=== PATIENT | male | born 1955 | race Caucasian/White ===

== ENCOUNTER 2016-10-07 04:28 | Emergency (ER) | payer MEDICAID ==
[2016-09-25 21:58] VITALS: BMI 23.7
[~2016-10-07 04:28] MED LIST: ASPIRIN EC81 MG PO; HEP C MEDICATION; NITROSTAT0.4 MG SL; NORCO 10/325 TA1 TA1 PO; PERCOCET 5-3251 TAB PO; PLAVIX75 MG PO; PRAVACHOL10 MG
== END 2016-10-07 05:28 | disposition home or self-care (01) ==
LOC: D.ER 04:28
DX: R10.9 Unspecified abdominal pain (principal); R11.10 Vomiting, unspecified; R19.7 Diarrhea, unspecified; F17.200 Nicotine dependence, unspecified, uncomplicated

== ENCOUNTER 2016-10-11 08:56 | Emergency (ER) | payer MEDICAID ==
[2016-09-25 21:58] VITALS: BMI 23.7
[2016-10-11 09:23] LABS: BASOPHILS 0.2 % (0.0-2.0); EOSINOPHILS 0.6 % (0-7); HEMATOCRIT 45.6 % (42.0-54.0); HEMOGLOBIN 15.1 g/dL (13.5-17.5); IMMATURE GRANULOCYTES 0.2 % (0-5); LYMPHOCYTES 23.2 % (15-50); MCH 32.7 pg (26.0-34.0); MCHC 33.1 g/dL (31.0-37.0); MCV 98.7 fL (80.0-100.0); MONOCYTES 5.5 % (2-11); NEUTROPHILS 70.3 % (40-80); RBC 4.62 10x6/uL (4.20-6.10); RDW 13.2 % (11.5-14.5); WBC 10.3 10x3/uL (4.8-10.8)
[2016-10-11 09:29] LABS: PLATELET COUNT 237 10x3/uL (130-400)
[2016-10-11 09:31] LABS: INR 0.99 (0.85-1.17); PROTIME 12.9 SECONDS (11.6-15.0)
[2016-10-11 09:36] LABS: ALBUMIN 3.9 g/dL (3.4-5.0); ALKALINE PHOSPHATASE 62 U/L (46-116); ALT (SGPT) 17 U/L (10-68); BILIRUBIN - TOTAL 0.28 mg/dL (0.2-1.3); CALC OSMOLALITY 282 mosm/kg (275-300); CALCIUM 9.4 mg/dL (8.5-10.1); CARBON DIOXIDE 23.4 mmol/L (21.0-32.0); CHLORIDE - SERUM 106 mmol/L (98-107); POTASSIUM - SERUM 4.1 mmol/L (3.5-5.1); PROTEIN - SERUM 7.4 g/dL (6.4-8.2); SODIUM 141 mmol/L (136-145); UREA NITROGEN 11 mg/dL (7-18); eGFR NON AFRICAN AMERICAN 81 mL/min (90-120)
[2016-10-11 09:41] LABS: GLUCOSE 148 mg/dL (74-106)
[2016-10-11 09:45] LABS: AMYLASE - SERUM 60 U/L (25-115); CREATINE KINASE 100 UL (21-232); LIPASE 124 U/L (73-393); PRO BNP 157 pg/mL (0-125); TROPONIN-I < 0.017 ng/mL (0.000-0.060)
== END 2016-10-11 10:16 | disposition home or self-care (01) ==
LOC: D.ER 08:56
PROVIDERS: Family Medicine
DX: K52.9 Noninfective gastroenteritis and colitis, unspecified (principal); I45.10 Unspecified right bundle-branch block; I44.60 Unspecified fascicular block

== ENCOUNTER 2016-10-13 23:16 | Emergency (ER) | payer MEDICAID ==
[2016-09-25 21:58] VITALS: BMI 23.7
== END 2016-10-14 00:21 | disposition home or self-care (01) ==
LOC: D.ER 23:16
DX: S46.912A Strain of unspecified muscle, fascia and tendon at shoulder and upper arm level, left arm, initial encounter (principal); X50.0XXA Overexertion from strenuous movement or load, initial encounter; X50.9XXA Other and unspecified overexertion or strenuous movements or postures, initial encounter; Y93.89 Activity, other specified; Y92.017 Garden or yard in single-family (private) house as the place of occurrence of the external cause; Y99.8 Other external cause status; B19.20 Unspecified viral hepatitis C without hepatic coma

== ENCOUNTER 2017-02-21 11:09 | Emergency (ER) | payer MEDICAID ==
[2016-09-25 21:58] VITALS: BMI 23.7
== END 2017-02-21 12:29 | disposition left against medical advice (07) ==
LOC: D.ER 11:09
DX: M54.2 Cervicalgia (principal)

== ENCOUNTER 2017-02-22 08:44 | Emergency (ER) | payer MEDICAID ==
[2016-09-25 21:58] VITALS: BMI 23.7
== END 2017-02-22 09:57 | disposition left against medical advice (07) ==
LOC: D.ER 08:44
DX: R07.9 Chest pain, unspecified (principal); I45.10 Unspecified right bundle-branch block

== ENCOUNTER 2017-02-24 15:55 | Emergency (ER) | payer MEDICAID ==
[2016-09-25 21:58] VITALS: BMI 23.7
[2017-02-24 18:50] LABS: BASOPHILS 0.8 % (0-2); EOSINOPHILS 2.5 % (0-7); HEMATOCRIT 45.8 % (42.0-54.0); HEMOGLOBIN 15.2 g/dL (13.5-17.5); IMMATURE GRANULOCYTES 0.1 % (0-5); LYMPHOCYTES 36.6 % (15-50); MCH 32.3 pg (26.0-34.0); MCHC 33.2 g/dL (31.0-37.0); MCV 97.4 fL (80.0-100.0); MEAN PLATELET VOLUME 10.8 fL (7.4-10.4); PLATELET COUNT 202 10x3/uL (130-400); RDW 13.3 % (11.5-14.5); WBC 9.1 10x3/uL (4.8-10.8)
[2017-02-24 19:10] LABS: ALBUMIN 3.8 g/dL (3.4-5.0); ALKALINE PHOSPHATASE 65 U/L (46-116); ALT (SGPT) 19 U/L (10-68); BILIRUBIN - TOTAL 0.24 mg/dL (0.2-1.3); CALC OSMOLALITY 279 mosm/kg (275-300); CALCIUM 9.2 mg/dL (8.5-10.1); CARBON DIOXIDE 24.6 mmol/L (21.0-32.0); CHLORIDE - SERUM 105 mmol/L (98-107); GLUCOSE 101 mg/dL (74-106); LIPASE 164 U/L (73-393); POTASSIUM - SERUM 4.3 mmol/L (3.5-5.1); PROTEIN - SERUM 7.1 g/dL (6.4-8.2); SODIUM 141 mmol/L (136-145); UREA NITROGEN 11 mg/dL (7-18); eGFR NON AFRICAN AMERICAN 81 mL/min (90-120)
== END 2017-02-24 22:50 | disposition home or self-care (01) ==
LOC: D.ER 15:55
PROVIDERS: Physician Assistant
DX: Z03.89 Encounter for observation for other suspected diseases and conditions ruled out (principal); F17.200 Nicotine dependence, unspecified, uncomplicated

== ENCOUNTER → 2017-04-16 13:54 | Outpatient (CLI) | payer MEDICAID ==
[2016-09-25 21:58] VITALS: BMI 23.7
== END | disposition home or self-care (01) ==
LOC: D.LAB 13:54
DX: Z01.812 Encounter for preprocedural laboratory examination (principal); I10 Essential (primary) hypertension; T14.8 Other injury of unspecified body region

== ENCOUNTER → 2017-04-30 07:19 | Outpatient (CLI) | payer MEDICAID ==
[2016-09-25 21:58] VITALS: BMI 23.7
[2017-04-30 07:52] LABS: HEMATOCRIT 43.4 % (42.0-54.0); HEMOGLOBIN 14.8 g/dL (13.5-17.5); WBC 9.7 10x3/uL (4.8-10.8)
[2017-04-30 08:08] LABS: CREATININE - SERUM 0.8 mg/dL (0.6-1.3); POTASSIUM - SERUM 4.4 mmol/L (3.5-5.1)
[2017-04-30 08:09] LABS: INR 0.92 (0.85-1.17); PROTIME 12.2 SECONDS (11.6-15.0)
== END ==
LOC: D.LAB 04-29 09:00
PROVIDERS: Specialist
DX: Z01.812 Encounter for preprocedural laboratory examination (principal); I10 Essential (primary) hypertension; T14.8 Other injury of unspecified body region

== ENCOUNTER → 2017-05-05 10:13 | Outpatient (CLI) | payer MEDICAID ==
[2016-09-25 21:58] VITALS: BMI 23.7
[2017-05-05 16:18] LABS: APPEARANCE CLEAR (CLEAR); BILIRUBIN NEGATIVE (NEGATIVE); COLOR DK YELLOW (YELLOW); GLUCOSE NEGATIVE (NEGATIVE); KETONE NEGATIVE (NEGATIVE); LEUKOCYTE ESTERASE NEGATIVE (NEGATIVE); NITRITE NEGATIVE (NEGATIVE); PROTEIN NEGATIVE (NEGATIVE); UROBILINOGEN NORMAL (NORMAL)
[2017-05-05 16:20] LABS: MUCUS <1+ /lpf (NONE SEEN)
[2017-05-05 16:22] LABS: WHITE CELLS - URINE OCC /hpf (0-5)
== END | disposition home or self-care (01) ==
LOC: D.LAB 10:13
PROVIDERS: Specialist
DX: T14.8 Other injury of unspecified body region (principal); Z01.812 Encounter for preprocedural laboratory examination

== ENCOUNTER 2017-05-11 15:03 | Emergency (ER) | payer MEDICAID ==
[2016-09-25 21:58] VITALS: BMI 23.7
== END 2017-05-11 15:32 | disposition left against medical advice (07) ==
LOC: D.ER 15:03
DX: S19.9XXA Unspecified injury of neck, initial encounter (principal); X58.XXXA Exposure to other specified factors, initial encounter; Y93.89 Activity, other specified; Y92.89 Other specified places as the place of occurrence of the external cause

== ENCOUNTER 2017-05-11 19:48 | Emergency (ER) | payer MEDICAID ==
[2016-09-25 21:58] VITALS: BMI 23.7
== END 2017-05-11 22:19 | disposition home or self-care (01) ==
LOC: D.ER 19:48
DX: M54.2 Cervicalgia (principal); M54.6 Pain in thoracic spine; W19.XXXA Unspecified fall, initial encounter; Y93.89 Activity, other specified; Y92.89 Other specified places as the place of occurrence of the external cause; F17.200 Nicotine dependence, unspecified, uncomplicated

== ENCOUNTER → 2017-07-15 08:17 | Outpatient (CLI) | payer MEDICAID ==
[2016-09-25 21:58] VITALS: BMI 23.7
[2017-07-15 08:34] LABS: BASOPHILS 0.5 % (0-2); EOSINOPHILS 1.6 % (0-7); HEMATOCRIT 45.8 % (42.0-54.0); HEMOGLOBIN 15.4 g/dL (13.5-17.5); IMMATURE GRANULOCYTES 0.3 % (0-5); MCH 33.3 pg (26.0-34.0); MCHC 33.6 g/dL (31.0-37.0); MCV 99.1 fL (80.0-100.0); MEAN PLATELET VOLUME 10.4 fL (7.4-10.4); MONOCYTES 5.2 % (2-11); NEUTROPHILS 65.4 % (40-80); PLATELET COUNT 225 10x3/uL (130-400); RBC 4.62 10x6/uL (4.20-6.10); WBC 7.9 10x3/uL (4.8-10.8)
[2017-07-15 10:03] LABS: ERYTHROCYTE SEDIMENTATION RATE 4 mm/hr (0-20)
== END ==
LOC: D.LAB 08:17
PROVIDERS: Specialist
DX: R52 Pain, unspecified (principal)

== ENCOUNTER 2017-07-28 08:30 | Outpatient (CLI) | payer MEDICAID ==
[2017-07-28 09:57] VITALS: BP 142/89; BMI 21.8
[2017-07-28 10:24] LABS: BASOPHILS 0.3 % (0-2); EOSINOPHILS 0.6 % (0-7); HEMOGLOBIN 16.5 g/dL (13.5-17.5); IMMATURE GRANULOCYTES 0.1 % (0-5); LYMPHOCYTES 21.9 % (15-50); MCH 33.5 pg (26.0-34.0); MCHC 34.4 g/dL (31.0-37.0); MCV 97.6 fL (80.0-100.0); MEAN PLATELET VOLUME 10.5 fL (7.4-10.4); NEUTROPHILS 70.1 % (40-80); PLATELET COUNT 199 10x3/uL (130-400); RBC 4.92 10x6/uL (4.20-6.10); RDW 12.8 % (11.5-14.5); WBC 9.5 10x3/uL (4.8-10.8)
[2017-07-28 11:15] LABS: CALCIUM 9.5 mg/dL (8.5-10.1); CHLORIDE - SERUM 104 mmol/L (98-107); POTASSIUM - SERUM 4.1 mmol/L (3.5-5.1); UREA NITROGEN 12 mg/dL (7-18)
[2017-07-28 11:16] LABS: CALC OSMOLALITY 271 mosm/kg (275-300); CARBON DIOXIDE 23.9 mmol/L (21.0-32.0); CREATININE - SERUM 0.8 mg/dL (0.6-1.3); GLUCOSE 101 mg/dL (74-106); SODIUM 136 mmol/L (136-145); eGFR NON AFRICAN AMERICAN > 90 mL/min (90-120)
== END 2017-07-28 13:15 | disposition home or self-care (01) ==
LOC: D.CATH 08:30
PROVIDERS: Internal Medicine Interventional Cardiology
DX: R07.9 Chest pain, unspecified (principal); Z53.21 Procedure and treatment not carried out due to patient leaving prior to being seen by health care provider

== ENCOUNTER 2017-08-30 07:41 | Emergency (ER) | payer MEDICAID ==
[2017-08-30 08:23] LABS: BASOPHILS 0.3 % (0-2); EOSINOPHILS 1.4 % (0-7); HEMATOCRIT 49.4 % (42.0-54.0); HEMOGLOBIN 16.4 g/dL (13.5-17.5); IMMATURE GRANULOCYTES 0.2 % (0-5); LYMPHOCYTES 28.7 % (15-50); MCH 32.5 pg (26.0-34.0); MCHC 33.2 g/dL (31.0-37.0); MCV 97.8 fL (80.0-100.0); MEAN PLATELET VOLUME 10.4 fL (7.4-10.4); MONOCYTES 5.5 % (2-11); NEUTROPHILS 63.9 % (40-80); RBC 5.05 10x6/uL (4.20-6.10); RDW 12.5 % (11.5-14.5); WBC 8.7 10x3/uL (4.8-10.8)
[2017-08-30 08:39] LABS: PLATELET COUNT 248 10x3/uL (130-400)
[2017-08-30 08:58] LABS: ALKALINE PHOSPHATASE 79 U/L (46-116); ALT (SGPT) 15 U/L (10-68); BILIRUBIN - TOTAL 0.24 mg/dL (0.2-1.3); CARBON DIOXIDE 27.1 mmol/L (21.0-32.0); CHLORIDE - SERUM 102 mmol/L (98-107); POTASSIUM - SERUM 4.1 mmol/L (3.5-5.1); PROTEIN - SERUM 7.7 g/dL (6.4-8.2); SODIUM 139 mmol/L (136-145); UREA NITROGEN 10 mg/dL (7-18)
[2017-08-30 08:59] LABS: ALBUMIN 3.8 g/dL (3.4-5.0); CHOL - HDL RATIO 4.3 ratio (2.3-4.9); CHOLESTEROL, TOTAL 262 mg/dL (0-200); CKMB 1.3 U/L (0.0-3.6); CREATINE KINASE 104 UL (21-232); HDL CHOLESTEROL 61 mg/dL (32-96); LDL CHOLESTEROL 185 mg/dL (0-100); PRO BNP 337 pg/mL (0-125); TRIGLYCERIDE 80 mg/dL (30-200)
[2017-08-30 09:10] LABS: CALC OSMOLALITY 277 mosm/kg (275-300); CREATININE - SERUM 0.9 mg/dL (0.6-1.3); GLUCOSE 108 mg/dL (74-106); eGFR NON AFRICAN AMERICAN > 90 mL/min (90-120)
== END 2017-08-30 08:29 | disposition left against medical advice (07) ==
LOC: D.ER 07:41
PROVIDERS: Emergency Medicine
DX: R07.9 Chest pain, unspecified (principal); F17.200 Nicotine dependence, unspecified, uncomplicated; I45.10 Unspecified right bundle-branch block

== ENCOUNTER 2017-09-12 11:42 | Observation (INO) | payer MEDICAID ==
[~2017-09-12] VITALS: Ht 185.4 cm; Wt 74.6 kg
--- NOTE | ~2017-09-12 | HEMODYNAMI ---
PATIENT:MIRNA JARRELL MEDICAL RECORD: [id number] : 59 [facility] [id number] ADMISSION DATE: 09/12/17 Generatedon:09/13/201713:12 Patient name: MIRNA JARRELL Patient #: [id number] SSN: [id number] : 1955 Date of study: 09/13/2017 Page: Of Hemodynamic Procedure Report Patient Data Patient Demographics Procedure consent was obtained First Name: MIRNA Gender: Male Last Name: WESLY : 1955 Middle Initial: P Age: 62 year(s) Patient #: [id number] Race: SSN: [id number] Additional ID: [id number] Contact details Address: [address] [place] [address] State: [place] City: [facility] Zip code: [address] Past Medical History Allergies: No known allergies Admission Admission Data Admission Date: 09/12/2017 Admission Time: 15:38 Room #: D.2117 Height (in.): 73 BSA: 1.98 (m2) Height (cm.): 185.42 BMI: 21.71 (kg/m2) Weight (lbs.): 164.53 Weight (kg.): 74.63 Procedure Procedure Types Cath Procedure Diagnostic Procedure [facility] w/Coronaries Miscellaneous Procedures Moderate Sedation up to 15 minutes Procedure Description Procedure Date Procedure Date: 09/13/2017 Procedure Start Time: 12:54 Procedure End Time: 13:12 Procedure Staff Name Function Ozzie Gordon MD Performing Physician Jaime Lr RT Monitor Martita Zuñiga RT Scrub Colin Muniz RN Nurse Procedure Data Cath Procedure Fluoroscopy Diagnostic fluoroscopy Total fluoroscopy Time: 1.6 time: 1.6 min min Diagnostic fluoroscopy Total fluoroscopy dose: 136 dose: 136 mGy mGy Contrast Material Contrast Material Type Amount (ml) Isovue 300 55 Entry Location Entry Primary Successful Side Size Upsize Upsize Entry Closure Pope ccessful Closure Location (Fr) 1 (Fr) 2 (Fr) Remarks Device Remarks Radial Right 6 Fr Mechanical artery Short Compression Estimated blood loss: 10 ml Diagnostic catheters Device Type Used For End Catheter Placement DIAGNOSTIC Sutton 110cm 5 Procedure Fr catheter ([id number]) Procedure Complications No complications Procedure Medications Medication Administration Route Dosage Oxygen NC 2 l/min Heparin Flush Bag added to field 2 bags (1000units/500ml NS) 0.9% NaCl I.V. 100 ml/hr Radial Cocktail added to field 1 syringe (Verapomil 2mg/Nitro 400mcg/Heparin 1500units) Fentanyl I.V. 50 mcg Versed I.V. 1 mg Fentanyl I.V. 50 mcg Versed I.V. 1 mg Radial Cocktail I.A. 1 syringe (Verapomil 2mg/Nitro 400mcg/Heparin 1500units) Fentanyl I.V. 50 mcg Fentanyl I.V. 50 mcg Solumedrol I.V. 125 mg Hemodynamics Rest BSA: 1.98 (m2) O2 Consumption: Estimated: 230.19 (ml/min) O2 Consumption indexed : Estimated:116.26 (ml/min/m) Heart Rate: 67 (bpm) Pressure Samples Time Site Value (mmHg) Purpose Heart Use Rate(bpm) 12:56 LV 108/0,6 Snapshot 32 12:57 AO 91/57(75) Pullback 73 12:57 LV 106/0,6 Pullback 73 Gradients Valve Time Site 1 Site 2 Mean SEP/DFP Peak To Heart Use (mmHg) (sec/min) Peak Rate (mmHg) (bpm) Aortic 12:57 LV AO 15 20 15 73 106/0,6 91/57(75) Calculations Valve P-P Mean Valve Index Valve Source Name Gradient Area Flow (cm2) Aortic 15 15 15 15 Snapshots Pre Cath Intra NCS Post Cath Vital Signs Time Heart Resp SPO2 etCO2 NIBP (mmHg) Rhythm Pain Sedation Rate (ipm) (%) (mmHg) Status Level (bpm) 12:47:57 68 18 96 32.9 148/84(118) NSR 0 (11) 10(A) , No pain 12:52:07 70 19 94 26.2 135/93(111) NSR 0 (11) 10(A) , No pain 12:56:13 70 19 96 1.4 113/82(100) NSR 0 (11) 10(A) , No pain 13:00:21 70 18 96 35.9 121/73(97) NSR 0 (11) 9(A) , No pain 13:04:31 68 19 97 15.7 119/73(94) NSR 0 (11) 9(A) , No pain 13:09:13 31.4 No Cuff NSR 0 (11) 9(A) , No pain Medications Time Medication Route Dose Verified Delivered Reason Notes Effectiveness by by 12:51:08 Oxygen NC 2 l/min Ozzie Shwa Per [facility] Gabriel eldridge MD 12:51:17 Heparin Flush added 2 bags Ozzie Shaw used for Bag to [facility] Gabriel Muniz RN procedure (1000units/500ml field JOSEPH NS) 12:51:28 0.9% NaCl I.V. 100 Ozzie Calderony Per ml/hr [facility] Gabriel eldridge MD 12:51:57 Radial Cocktail added 1 Ozzie Shaw Per (Verapomil to syringe [facility] Gabriel eldridge 2mg/Nitro field JOSEPH 400mcg/Heparin 1500units) 12:52:04 Fentanyl I.V. 50 mcg Ozzie Shaw for sedation [facility] Gabriel Muniz RN, MD 12:52:12 Versed I.V. 1 mg Ozzie Shaw for sedation [facility] Gabriel Muniz RN, MD 12:56:07 Fentanyl I.V. 50 mcg Ozzie Shaw for sedation [facility] Gabriel Muniz RN, MD 12:56:11 Versed I.V. 1 mg Ozzie Shaw for sedation [facility] Gabriel Muniz RN, MD 12:56:22 Radial Cocktail I.A. 1 Ozzie Ozzie for (Verapomil syringe [facility] Gabriel Lamar 2mg/Carrie JOSEPH MD 400mcg/Heparin 1500units) 12:59:37 Fentanyl I.V. 50 mcg Ozzie Shaw for sedation [facility] Gabriel Muniz RN, MD 13:02:16 Fentanyl I.V. 50 mcg Ozzie Shaw for sedation [facility] Gabriel Muniz RN, MD 13:02:31 Solumedrol I.V. 125 mg Ozzie Shaw Per [facility] Gabriel eldridge MD Procedure Log Time Note 12:15:23 Colin Muniz RN sent for patient. Start room use. 12:19:31 Patient Height : 73 inches 12:19:41 Patient Weight : 164.53 lbs 12:20:15 Diagnostic Cath status Elective 12:20:17 Time tracking: Regular hours 12:20:20 Plan of Care:Hemodynamics will remain stable., Cardiac rhythm will remain stable., Comfort level will be maintained., Respiratory function will remain adequate., Patient/ family verbilizes understanding of procedure., Procedure tolerated without complication., Recovers from procedure without complications.. 12:37:04 Patient received from Med II to CCL 1 Alert and oriented. Tansferred to table in Supine position. 12:37:16 Warm blankets applied, and ifrah hugger turned on for patient comfort. 12:37:16 Correct patient and procedure confirmed by team. 12:37:18 Signed procedure consent form obtained from patient. 12:37:22 ECG and BP/O2 sat monitors applied to patient. 12:46:51 Vital chart was started 12:50:24 Baseline sample Acquired. 12:50:28 Rhythm: sinus rhythm 12:50:30 Full Disclosure recording started 12:50:35 H&P Date Dictated: 09/13/2017 Within 30 days and on chart.. 12:50:36 Pre-procedure instructions explained to patient. 12:50:36 Pre-op teaching completed and patient verbalized understanding. 12:50:38 Family in patients room. 12:50:39 Patient NPO since Midnight. 12:50:40 Is the patient allergic to Iodine/contrast media? No. 12:50:47 Is patient on blood thinner?Yes 12:50:49 ACC The patient was administered the following blood thiners within the last 24 hours: ACCPlavix 12:50:50 Patient diabetic? No. 12:50:56 Previous problem with sedation/anesthesia? No ? 12:50:57 Snore? No 12:50:58 Sleep apnea? No 12:50:59 Deviated septum? No 12:51:00 Opens mouth fully? Yes 12:51:01 Sticks out tongue? Yes 12:51:05 Airway obstruction? No ? 12:51:08 Oxygen 2 l/min NC was administered by Colin Muniz RN; Per physician; 12:51:08 Dentures? Yes IN 12:51:12 Pre procedure: right dorsailis pedis pulse 1+ Palpable, but thready & weak; easily obliterated 12:51:14 Modified Ke's test Ulnar < 7 seconds 12:51:17 Heparin Flush Bag (1000units/500ml NS) 2 bags added to field was administered by Colin Muniz RN; used for procedure; 12:51:18 Patient pain scale 0/10 ?. 12:51:23 IV patent on arrival in right forearm with 0.9% NaCl at [facility]. 12:51:28 0.9% NaCl 100 ml/hr I.V. was administered by Colin Muniz RN; Per physician; 12:51:31 Lab results completed and on chart. 12:51:34 Right Radial & Right Groin area was prepped with chlora-prep and draped in sterile fashion 12:51:35 Alarms reviewed by R. N. 12:51:35 Sharps counted by scrub and verified by R.N. 12:51:36 --------ALL STOP TIME OUT------ 12:51:37 Final Timeout: patient, procedure, and site verified with staff and physician. All members of the team are in agreement. 12:51:38 Right Radial & Right Groin site verified by team. 12:51:44 Physical assessment completed. ASA score P 2 - A patient with mild systemic disease as per Ozzie Gordon MD. 12:51:46 Sedation plan: IV Moderate Sedation Medication:Versed, Fentanyl 12:51:57 Radial Cocktail (Verapomil 2mg/Nitro 400mcg/Heparin 1500units) 1 syringe added to field was administered by Colin Muniz RN; Per physician; 12:52:04 Fentanyl 50 mcg I.V. was administered by Colin Muniz RN; for sedation; 12:52:12 Versed 1 mg I.V. was administered by Colin Muniz RN; for sedation; 12:54:27 Use device set Radial Dx 12:54:29 Tegaderm 4 x 4 (1626W) opened to sterile field. 12:54:30 ACIST Manifold (09828) opened to sterile field. 12:54:34 ACIST Hand Control (53592) opened to sterile field. 12:54:35 ACIST Syringe (53776) opened to sterile field. 12:54:35 Medline Cath Pack ([id number]) opened to sterile field. 12:54:35 Bag Decanter (2002) opened to sterile field. 12:54:36 SHEATH 6FR Slender ([id number]) opened to sterile field. 12:54:36 DIAGNOSTIC WIRE .035 260cm J wire (074760) opened to sterile field. 12:54:36 MBrace Wrist Support ([id number]) opened to sterile field. 12:54:40 Procedure started. 12:54:44 Local anesthetic to right radial artery with Lidocaine 2% by Ozzie Gordon MD.INITIAL ACCESS ONLY 12:55:47 A 6 Fr Short sheath was inserted into the Right Radial artery 12:56:07 Fentanyl 50 mcg I.V. was administered by Colin Muniz RN; for sedation; 12:56:07 A DIAGNOSTIC Sutton 110cm 5 Fr catheter (467635) was advanced over the wire and used for Procedure. 12:56:11 Versed 1 mg I.V. was administered by Colin Muniz RN; for sedation; 12:56:22 Radial Cocktail (Verapomil 2mg/Nitro 400mcg/Heparin 1500units) 1 syringe I.A. was administered by Ozzie Gordon MD; for vasodilation; 12:56:55 LV angiography performed. 12:56:56 LV gram done using SOUZA 12:57:11 EF : 55 % 12:57:13 LV hemodynamics recorded. 12:57:15 Injector settings: Ml/sec: 7, Volume: 15, 12:58:11 LCA angiography performed. 12:59:37 Fentanyl 50 mcg I.V. was administered by Colin Muniz RN; for sedation; 12:59:38 RCA angiography performed. 12:59:48 Catheter removed. 12:59:57 TR BAND Standard ([id number]) opened to sterile field. 13:00:05 Sheath removed intact; hemostasis achieved with Mechanical Compression to the Right Radial artery. 13:00:23 Procedure ended.(Physican Out) 13:00:25 TR band inflated with 12cc of air. 13:01:47 Contrast amount:Isovue 300 55ml. 13:02:01 Fluoroscopy time 01.60 minutes. 13:02:05 Fluoroscopy dose: 136 mGy 13:02:05 Flurop Dose total: 136 13:02:07 Sharps counted by scrub and verified by R.N. 13:02:08 Insertion/operative site no bleeding no hematoma. 13:02:13 Post Procedure Pulses reassessed and unchanged 13:02:15 Post-procedure physical assessment completed. ASA score P 2 - A patient with mild systemic disease as per Ozzie Gordon MD. 13:02:16 Fentanyl 50 mcg I.V. was administered by Colin Muniz RN; for sedation; 13:02:17 Post procedure rhythm: unchanged. 13:02:20 Estimated blood loss: 10 ml 13:02:22 Post procedure instruction explained to patient.Patient verbalizes understanding. 13:02:22 Patient needs reinforcement of post procedure teaching. 13:02:31 Solumedrol 125 mg I.V. was administered by Colin Muniz RN; Per physician; 13:03:58 Procedure Complication : No complications 13:04:01 Procedure and supply charges have been captured, reviewed, submitted and are correct. 13:11:35 Vital chart was stopped 13:11:35 See physician's report for complete and final results. 13:11:39 Report given to PCU. 13:11:51 Patient transfered to PCU with Bed. 13:12:04 Procedure ended. 13:12:04 Full Disclosure recording stopped 13:12:08 End room use (Document Last) Device Usage Item Name Manufacture Quantity Catalog Hospital Part Current Minima l Lot# / Number Charge Number Stock Stock Serial# Code Tegaderm 4 x 3M 1 1626W [id number] 729603 027552 5 4 (1626W) ACIST Acist 1 99577 745769 395366 894125 5 Manifold Medical (19236) Systems Inc ACIST Hand Acist 1 49382 610462 906766 671616 5 Control Medical (20897) Systems Inc ACIST Acist 1 61014 492186 940893 053743 20 Syringe Medical (84067) Systems Inc Medline Cath Cardinal 1 [id number] 848461 92985 012409 5 Pack Health ([id number]) Bag Decanter Microtek 1 2001S 567832 46575 960969 5 (2001S) Medical Inc. SHEATH 6FR Terumo 1 [id number] 719286 026086 141232 40 Slender ([id number]) DIAGNOSTIC [facility] [place] 1 451428 579887 491324 200335 30 WIRE .035 260cm J wire (993484) MBrace Wrist Advanced 1 140-0250-00 604272 18410 588103 5 Support Vascular ([id number]) Dynamics DIAGNOSTIC Terumo 1 40-6028 533000 977300 388606 5 Sutton 110cm 5 Fr catheter (530756) TR BAND Terumo 1 SOO95-IBK 356816 547208 863409 40 Standard ([id number]) Signature Audit [place] Stage Time Signature Unsigned Intra-Procedure 09/13/2017 Jaime Lr 1:12:36 PM RT(R) Signatures Monitor : Jaime Lr RT Signature : Date : Time : [address] [address]
[2017-09-12 12:17] LABS: BASOPHILS 0.7 % (0-2); EOSINOPHILS 1.4 % (0-7); HEMATOCRIT 45.6 % (42.0-54.0); HEMOGLOBIN 15.2 g/dL (13.5-17.5); IMMATURE GRANULOCYTES 0.2 % (0-5); LYMPHOCYTES 28.5 % (15-50); MCH 32.6 pg (26.0-34.0); MCHC 33.3 g/dL (31.0-37.0); MCV 97.9 fL (80.0-100.0); MEAN PLATELET VOLUME 10.4 fL (7.4-10.4); MONOCYTES 4.4 % (2-11); NEUTROPHILS 64.8 % (40-80); PLATELET COUNT 216 10x3/uL (130-400); RBC 4.66 10x6/uL (4.20-6.10); RDW 12.8 % (11.5-14.5); WBC 8.8 10x3/uL (4.8-10.8)
[2017-09-12 12:33] LABS: ALBUMIN 3.4 g/dL (3.4-5.0); ALKALINE PHOSPHATASE 70 U/L (46-116); ALT (SGPT) 13 U/L (10-68); CALC OSMOLALITY 280 mosm/kg (275-300); CALCIUM 8.5 mg/dL (8.5-10.1); CARBON DIOXIDE 25.5 mmol/L (21.0-32.0); CHLORIDE - SERUM 103 mmol/L (98-107); GLUCOSE 158 mg/dL (74-106); POTASSIUM - SERUM 3.7 mmol/L (3.5-5.1); PROTEIN - SERUM 7.2 g/dL (6.4-8.2); SODIUM 140 mmol/L (136-145); UREA NITROGEN 10 mg/dL (7-18); eGFR NON AFRICAN AMERICAN 81 mL/min (90-120)
[2017-09-12 12:44] LABS: CKMB 1.3 U/L (0.0-3.6); CREATINE KINASE 92 UL (21-232)
[2017-09-12 12:48] LABS: TROPONIN-I < 0.017 ng/mL (0.000-0.060)
[2017-09-12 13:45] LABS: AMYLASE - SERUM 65 U/L (25-115); LIPASE 100 U/L (73-393)
[2017-09-12 15:51] LABS: CKMB 1.2 U/L (0.0-3.6); CREATINE KINASE 87 UL (21-232); TROPONIN-I < 0.017 ng/mL (0.000-0.060)
--- NOTE | 2017-09-12 16:01 | NUR ---
TRANSFER FROM ER BY W/C. NIXONINTED TO ROOM. CALL LIGHT IN REACH. WILL CONT. PLAN OF CARE.
[2017-09-12 16:31] VITALS: BP 135/87; Ht 185.4 cm; Wt 74.6 kg
[2017-09-12 17:05] VITALS: BP 131/80
--- NOTE | 2017-09-12 19:00 | NUR ---
RECEIVED REPORT AND ASSUMED PT CARE FROM DAY SHIFT NURSE @ THIS TIME
--- NOTE | 2017-09-12 20:07 | NUR ---
PT REPORTS CHEST PAIN, SHARP AND RIGHT SIDED. RATES @ 10/10 ON PAIN SCALE. MORPHINE 4 MG IV GIVEN. AFTER 20 MIN PT REPORTS PAIN NOW AT A 4/10. WILL CONT TO MONITOR.
[2017-09-12 20:23] VITALS: BP 95/59
[2017-09-12 22:16] LABS: CKMB 1.3 U/L (0.0-3.6); CREATINE KINASE 156 UL (21-232)
[2017-09-12 22:21] LABS: TROPONIN-I < 0.017 ng/mL (0.000-0.060)
[2017-09-13 01:21] VITALS: BP 112/75
[2017-09-13 04:05] LABS: CKMB 1.3 U/L (0.0-3.6); CREATINE KINASE 90 UL (21-232); TROPONIN-I < 0.017 ng/mL (0.000-0.060)
[2017-09-13 04:48] VITALS: BP 120/77
--- NOTE | 2017-09-13 07:30 | NUR ---
RECEIVED PT IN BED AAOX4 RESP UNLABORED NAD NOTED DENIES ANY NEEDS C/O CHEST PAIN 07/13 WANTS PAIN MED WHEN HE CAN HAVE IT
[2017-09-13 08:00] VITALS: BP 133/85
[2017-09-13 10:02] LABS: BASOPHILS 0.6 % (0-2); EOSINOPHILS 3.7 % (0-7); HEMATOCRIT 42.1 % (42.0-54.0); HEMOGLOBIN 13.7 g/dL (13.5-17.5); IMMATURE GRANULOCYTES 0.1 % (0-5); LYMPHOCYTES 37.9 % (15-50); MCH 32.3 pg (26.0-34.0); MCHC 32.5 g/dL (31.0-37.0); MCV 99.3 fL (80.0-100.0); MEAN PLATELET VOLUME 10.7 fL (7.4-10.4); MONOCYTES 6.9 % (2-11); NEUTROPHILS 50.8 % (40-80); PLATELET COUNT 207 10x3/uL (130-400); RBC 4.24 10x6/uL (4.20-6.10); RDW 12.8 % (11.5-14.5); WBC 7.8 10x3/uL (4.8-10.8)
[2017-09-13 10:06] LABS: CALC OSMOLALITY 274 mosm/kg (275-300); CALCIUM 8.1 mg/dL (8.5-10.1); CARBON DIOXIDE 25.6 mmol/L (21.0-32.0); CHLORIDE - SERUM 105 mmol/L (98-107); CREATININE - SERUM 0.9 mg/dL (0.6-1.3); SODIUM 138 mmol/L (136-145); UREA NITROGEN 11 mg/dL (7-18); eGFR NON AFRICAN AMERICAN > 90 mL/min (90-120)
[2017-09-13 10:13] LABS: GLUCOSE 97 mg/dL (74-106)
[2017-09-13 11:25] VITALS: BP 116/74
--- NOTE | 2017-09-13 12:15 | NUR ---
PREOP MEDS GIVEN FOR CATH PT STATES IF THEY ARE NOT GOING TO DO ANYTHING FOR ME I WILL JUST GO HOME EXPLAINED THAT HE WOULD BE GOING TO THE WOOD AND HARDWARE OUTFITTER SHORTLY THAT IS WHY I GAVE THE PREOP MEDS
--- NOTE | 2017-09-13 12:26 | NUR ---
TO REHAB OFFICE COORDINATOR VIA BED
--- NOTE | 2017-09-13 13:20 | NUR ---
PT RETURNED FROM [facility]LE AND MARBLE INSTALLER VIA BED IN STABLE CONDITION TR BAND WITH WRIST BRACE INTACT TO RT WRIST PPPX4 NO SIGNS OF BLEEDING VSS WILL CONTINUE TO MONITOR
--- NOTE | 2017-09-13 13:40 | NUR ---
PT STATES WE ARE NOT DOING ANYTHING FOR HIM ASKED IF THE DOCTOR LEFT A PRESCRIPTION FOR PAIN PILLS EXPLAINED NO DEMANDED TO TALK TO DR BLACKWOOD TOLD PT I WOULD TRY TO GET IN TOUCH WITH HIME CALLED CROTCH BREAKER STATED DR BLACKWOOD WAS ALREADY GONE CALLED CARDIAC CLINIC SPOKE WITH MARLA BLACKWOOD'S NURSE SHE STATED DR BLACKWOOD WOULD NOT BE BACK IN OFFICE TODAY EXPLAINED TO PT OFFERED TO CALL PHYSICIAN HOSE TUBING BACKER PT STATED HE WANTED TO TALK TO DR BLACKWOOD AND WE WERE NOT DOING ANYTHING TO HELP HIM HE WAS LEAVING PT STILL HAD TR BAND ON ASKED IF I COULD REMOVE SOME OF THE AIR THAT NEEDED TO ENSURE BLEEDING WAS STOPPED I WAS ABLE TO REMOVE HALF OF AIR KEPT GETTING DRESSED ATTEMPTING TO GO OUT DOOR RUBBER FLAP TUBER MACHINE OPERATOR HERE ASSISTING EXPLAINING HE NEEDED TO STA PT STATES VERY LOUDLY NO I AM LEAVING I ASKED IF I COULD REMOVE SALINE LOCK AND LET REMAINDER OF AIR OUT OF TR BAND PT DID ALLOW IT SALINE LOCK DCD TO RAC WITH IV CATHETER INTACT BANDAID DRSG APPLIED REMOVED AIR FROM TR BAND AND APPLIED OCCLUSIVE DRSG REAPPLIED TR BAND WITHOUT AIR NO BLEEDING NOTED PT SIGNED AMA AND LEFT UNIT
--- NOTE | 2017-09-15 15:17 | HP ---
PATIENT: MIRNA JARRELL MEDICAL RECORD: [id number] ACCOUNT: [id number] LOCATION:[address] : 59 ADMISSION DATE: 09/12/17 HISTORY AND PHYSICAL EXAMINATION HISTORY OF PRESENT ILLNESS: A 62-year-old gentleman with a known history of coronary artery disease, status post intervention. He has been having intermittent chest pain, both typical and atypical features. He had severe rest pain yesterday accompanied by nausea. Pressure started as stabbing and then developed into pressure, tightness. Mitigating factor is he also suffers from obstructive pulmonary disease, though difficult to get a full assessment of effort tolerance. We are asked to see him concerning his cardiovascular status. PAST MEDICAL HISTORY: Includes; 1. History of renal calculi. 2. Coronary artery disease as described above. 3. Noncompliance with meds. 4. Dyslipidemia. ALLERGIES: TRAMADOL. REGULAR MEDICINE: Aspirin only. SOCIAL HISTORY: Lives here in [place], smokes better than a pack a day. No set exercise program. REVIEW OF SYSTEMS: The patient reports easy bruising but reports no swollen glands. The patient reports no fever, no night sweats, no significant weight gain, no significant weight loss. No significant exercise tolerance. The patient reports no dry eyes, no irritation, no vision change. Patient reports no difficulty hearing and no ear pain. Patient reports no frequent nose bleeds or nose and sinus problems. Patient reports on arm pain on exertion. No shortness of breath while lying down. No history of heart murmur. Patient reports no cough, no wheezing or coughing up blood. Patient reports no abdominal pain, no vomiting. Normal appetite. No diarrhea and not vomiting blood. No nausea and no constipation. Patient reports no incontinence. No difficulty urinating. No hematuria. No increased frequency. Patient reports no muscle aches. No weakness, no arthralgias, no back pain. No swelling of the extremities. Patient reports no abnormal mole, no jaundice, no rashes. Reports no loss of consciousness. No weakness and no numbness. No seizures, dizziness, or headaches. The patient reports no depression, no sleep disturbance, feeling safe in a relationship and no alcohol abuse. Patient reports on fatigue. Reports no runny nose or sinus pressure. No itching, no hives, and no frequent sneezing. PHYSICAL EXAMINATION GENERAL: Pleasant gentleman, in no acute distress. VITAL SIGNS: Blood pressure 133/85, pulse 63 and regular. HEENT: Normocephalic, atraumatic. NECK: No JVD or bruit. HEART: Regular. LUNGS: Zuñiga clear. ABDOMEN: Soft, nontender. EXTREMITIES: Pulse 2+ with no edema. HISTORY AND PHYSICAL [id number] MIRNA JARRELL DIAGNOSTIC DATA: ECG without acute change. IMPRESSION: Recurrent angina, status post intervention. PLAN: For angiography, intervention based on the above. TRANSINT:[id number] Voice Confirmation ID: [id number] DOCUMENT ID: [id number] PEMA BLACKWOOD MD at 1517 CC: [id number] DICTATION DATE: 09/13/17917 CORDUROY CUTTING SUPERVISOR: 09/13/17 1033 DIS IN 09/13/17 [facility] [address] [place] [address]
--- NOTE | 2017-09-15 15:17 | OP ---
PATIENT NAME: MIRNA JARRELL MEDICAL RECORD: [id number] :59 LOCATION:D.M2 D.2117 ADMISSION DATE:09/12/17 SURGEON: PEMA BLACKWOOD MD DATE OF OPERATION: 09/13/2017 PROCEDURE: Left heart catheterization, selective coronary angiography, right radial approach. CATHETERS: A 5-Chinese sheath, 5/4 left and right Fatou, 5/4 pig. The procedure was well tolerated and the patient was returned to ho, sheath was removed. TR band was placed. FINDINGS: Left ventriculography in 30-degree SOUZA view: Normal wall motion, normal systolic function. CORONARY ANATOMY. LEFT MAIN: Left main is free of disease. LAD: An area of previous stenting is widely patent without evidence of restenosis. No progression of santee sioux disease. CIRCUMFLEX: The area of previous stenting is widely patent without progression of s[place] si[place] disease. RIGHT CORONARY ARTERY: Totally occluded and fills via left to right collaterals. This is a known total occlusion for a 62-year-old. 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 TRANSINT:[id number] Voice Confirmation ID: [id number] DOCUMENT ID: [id number] PEMA BLACKWOOD MD at 1517 CC: [id number] DICTATION DATE: 09/13/17 1304 OFFLINE CUTTER: 09/13/17 1325 DIS IN 09/13/17 [place] [address] [place] [address]
== END 2017-09-13 13:50 | disposition left against medical advice (07) ==
LOC: D.ER 11:42 → D.M2 15:38 → OBSVTIME 15:38 → D.M2 09-13 13:50
PROVIDERS: Family Medicine; ADMIT Internal Medicine Interventional Cardiology
DX: I25.10 Atherosclerotic heart disease of native coronary artery without angina pectoris (principal); I25.82 Chronic total occlusion of coronary artery; Z95.5 Presence of coronary angioplasty implant and graft; Z72.0 Tobacco use; E78.5 Hyperlipidemia, unspecified

== ENCOUNTER 2018-04-10 08:52 | Emergency (ER) | payer MEDICAID ==
[~2018-04-10] VITALS: Ht 185.4 cm; Wt 81.8 kg
[2018-04-10 08:59] VITALS: BP 129/99
[2018-05-22 19:07] VITALS: Ht 185.4 cm; Wt 81.8 kg
== END 2018-04-10 09:32 | disposition home or self-care (01) ==
LOC: D.ER 08:52
DX: M54.5 Low back pain (principal); M54.31 Sciatica, right side; R10.9 Unspecified abdominal pain; M25.551 Pain in right hip; B19.20 Unspecified viral hepatitis C without hepatic coma; I10 Essential (primary) hypertension; F17.200 Nicotine dependence, unspecified, uncomplicated

== ENCOUNTER 2018-04-20 04:51 | Emergency (ER) | payer MEDICAID ==
[~2018-04-20] VITALS: Ht 185.4 cm; Wt 81.8 kg
[2018-04-20 04:57] VITALS: Ht 185.4 cm; Wt 81.8 kg
[2018-04-20 06:57] LABS: BASOPHILS 0.4 % (0-2); HEMATOCRIT 42.4 % (42.0-54.0); HEMOGLOBIN 14.5 g/dL (13.5-17.5); IMMATURE GRANULOCYTES 0.3 % (0-5); MCH 32.7 pg (26.0-34.0); MCHC 34.2 g/dL (31.0-37.0); MCV 95.5 fL (80.0-100.0); MEAN PLATELET VOLUME 10.3 fL (7.4-10.4); MONOCYTES 5.8 % (2-11); NEUTROPHILS 70.5 % (40-80); PLATELET COUNT 194 10x3/uL (130-400); RBC 4.44 10x6/uL (4.20-6.10); RDW 12.7 % (11.5-14.5)
[2018-04-20 07:17] VITALS: BP 147/92
[2018-04-20 07:25] LABS: ALBUMIN 3.5 g/dL (3.4-5.0); ALKALINE PHOSPHATASE 56 U/L (46-116); ALT (SGPT) 15 U/L (10-68); BILIRUBIN - TOTAL 0.27 mg/dL (0.2-1.3); CALC OSMOLALITY 270 mosm/kg (275-300); CALCIUM 8.3 mg/dL (8.5-10.1); CARBON DIOXIDE 25.5 mmol/L (21.0-32.0); CHLORIDE - SERUM 105 mmol/L (98-107); CREATININE - SERUM 0.8 mg/dL (0.6-1.3); GLUCOSE 110 mg/dL (74-106); POTASSIUM - SERUM 3.7 mmol/L (3.5-5.1); PROTEIN - SERUM 6.9 g/dL (6.4-8.2); SODIUM 136 mmol/L (136-145); UREA NITROGEN 7 mg/dL (7-18); eGFR NON AFRICAN AMERICAN > 90 mL/min (90-120)
[2018-04-20 07:34] LABS: CKMB 1.1 U/L (0.0-3.6); CREATINE KINASE 105 UL (21-232); TROPONIN-I < 0.017 ng/mL (0.000-0.060)
== END 2018-04-20 07:17 | disposition left against medical advice (07) ==
LOC: D.ER 04:51
PROVIDERS: Family Medicine
DX: M54.2 Cervicalgia (principal); R07.9 Chest pain, unspecified; M54.5 Low back pain; I10 Essential (primary) hypertension; F17.200 Nicotine dependence, unspecified, uncomplicated; W13.2XXA Fall from, out of or through roof, initial encounter

== ENCOUNTER 2018-05-04 07:29 | Outpatient (CLI) | payer MEDICAID ==
[~2018-05-04] VITALS: Ht 185.4 cm; Wt 81.8 kg
--- NOTE | ~2018-05-04 | OP ---
PATIENT NAME: MIRNA JARRELL MEDICAL RECORD: [id number] :59 LOCATION:D.CAT ADMISSION DATE: SURGEON: JASSON KYLE MD DATE OF OPERATION: 05/04/2018 PROCEDURES: 1. Left heart catheterization. 2. Selective coronary angiography. 3. Left ventriculogram. 4. Intravascular ultrasound. INDICATIONS: Angina and coronary artery disease. PROCEDURE IN DETAIL: After informed consent was obtained and after detailed explanation of risks, benefits as well as alternative therapies, the patient elected to proceed with angiogram and heart catheterization. The right radial area was prepped and draped in normal sterile fashion. Right radial artery was cannulated via modified Seldinger technique with placement of 5-Burmese sheath. All catheters exchanged through this sheath. FINDINGS: The left ventriculogram was performed in standard 30-degree SOUZA view, reveals good cardiac wall motion throughout all segments. Overall ejection fraction estimated 60%. SELECTIVE CORONARY ANGIOGRAPHY: 1. Left main has greater than 70% stenosis confirmed by intravascular ultrasound. 2. Left anterior descending has 70% stenosis at the ostium confirmed by intravascular ultrasound. 3. The left circumflex has greater than 80% stenosis at the ostium. 4. Right coronary is totally occluded. Distal RCA is very small and not graftable. OVERALL IMPRESSION: Significant disease of the left main ostium and left anterior descending ostium and left circumflex ostium evaluate for coronary bypass graft surgery of the left anterior descending, ramus intermedius, and circumflex. TRANSINT:[id number] Voice Confirmation ID: [id number] DOCUMENT ID: [id number] JASSON KYLE MD at 1713 CC: [id number] DICTATION DATE: 05/04/18 0927 ROTOR CASTING MACHINE OPERATOR: 05/04/18 1123 DEP CLI 05/04/18 [place] [id number]
--- NOTE | ~2018-05-04 | HEMODYNAMI ---
PATIENT:MIRNA JARRELL MEDICAL RECORD: [id number] : 59 LOCATION:[facility] ADMISSION DATE: 05/04/18 Generatedon:05/04/20189:30 Patient name: MIRNA JARRELL Patient #: [id number] SSN: [id number] : 1955 Date of study: 05/04/2018 Page: Of Hemodynamic Procedure Report Patient Data Patient Demographics Procedure consent was obtained First Name: MIRNA Gender: Male Last Name: WESLY : 1955 [facility] Initial: P Age: 62 year(s) Patient #: [id number] Race: SSN: [id number] Additional ID: [id number] Contact details Address: [address] [place] [address] State: [place] City: [facility] Zip code: [address] Past Medical History Allergies Allergen Reaction Date Comments Reported Other allergy 05/04/2018 TRAMADOL Admission Admission Data Admission Date: 05/04/2018 Admission Time: 7:29 Lab Results Lab Result Date: 05/04/2018 Lab Result Time: 0:00 Biochemistry Name Units Result Min Max BUN mg/dl 12 --(-*--)-- 7 18 Creatinine mg/dl 0.7 --(*---)-- 0.6 1.3 CBC Name Units Result Min Max Hemoglobin g/dl 14.6 --(-*--)-- 13.5 17.5 Procedure Procedure Types Cath Procedure Diagnostic Procedure LHC LH w/Coronaries FFR/IVUS Intra-Coronary IVUS Initial Sedation Charges Moderate Sedation up to 15 minutes Procedure Description Procedure Date Procedure Date: 05/04/2018 Procedure Start Time: 9:06 Procedure End Time: 9:28 Procedure Staff Name Function Colin Muniz RN Telephone Information Clerk Jeffrey Olvera MD Performing Physician Martita Zuñiga RT Scrub Zain Cisse RT Monitor Michelet Negron RN Nurse Procedure Data Cath Procedure Fluoroscopy Diagnostic fluoroscopy Total fluoroscopy Time: 3.3 time: 3.3 min min Diagnostic fluoroscopy Total fluoroscopy dose: 552 dose: 552 mGy mGy Contrast Material Contrast Material Type Amount (ml) Isovue 370 53 Entry Location Entry Primary Successful Side Size Upsize Upsize Entry Closure Pope ccessful Closure Location (Fr) 1 (Fr) 2 (Fr) Remarks Device Remarks Radial Right 6 Fr Mechanical artery Short Compression Estimated blood loss: 10 ml Diagnostic catheters Device Type Used For End Catheter Placement DIAGNOSTIC Crumrod 110cm 5 Procedure Fr catheter ([id number]) Procedure Complications No complications Procedure Medications Medication Administration Route Dosage 0.9% NaCl I.V. 100 ml/hr Oxygen etCO2 Nasal cannula 2 l/min Heparin Flush Bag added to field 2 bags (1000units/500ml NS) Lidocaine 2% added to field 20 Radial Cocktail added to field 1 syringe (Verapomil 2mg/Nitro 400mcg/Heparin 1500units) Versed I.V. 2 mg Fentanyl I.V. 100 mcg Radial Cocktail I.A. 1 syringe (Verapomil 2mg/Nitro 400mcg/Heparin 1500units) Hemodynamics Rest HGB: 14.6 (g/dl) Heart Rate: 56 (bpm) Pressure Samples Time Site Value (mmHg) Purpose Heart Use Rate(bpm) 9:19 LV 88/-9,-8 Snapshot 70 Snapshots Pre Cath Intra NCS Post Cath Vital Signs Time Heart Resp SPO2 etCO2 NIBP (mmHg) Rhythm Pain Sedation Rate (ipm) (%) (mmHg) Status Level (bpm) 8:53:03 55 18 98 0 158/95(111) NSR 0 (11) 10(A) , No pain 8:57:44 58 17 100 33.1 142/93(112) NSR 0 (11) 10(A) , No pain 9:02:22 56 15 97 33.8 126/77(90) NSR 0 (11) 10(A) , No pain 9:06:55 55 18 97 40.6 113/74(87) NSR 0 (11) 9(A) , No pain 9:11:27 61 18 94 40.6 108/72(97) NSR 0 (11) 9(A) , No pain 9:16:02 60 14 97 15.7 100/64(79) NSR 0 (11) 9(A) , No pain 9:20:34 62 19 93 34.5 96/59(73) NSR 0 (11) 9(A) , No pain 9:25:39 58 15 95 33.8 99/64(81) NSR 0 (11) 9(A) , No pain Medications Time Medication Route Dose Verified Delivered Reason Notes Effectiveness by by 8:56:49 0.9% NaCl I.V. 100 Michelet Michelet Per ml/hr Migdalia Negron physician RN RN 8:57:01 Oxygen etCO2 2 l/min Michelet Michelet Per Nasal Migdalia Negron physician cannula RN RN 8:57:17 Heparin Flush added 2 bags Michelet Michelet used for Bag to Migdalia Negron procedure (1000units/500ml field RN RN NS) 8:57:29 Lidocaine 2% added 20ml Michelet Michelet for local to vial Lorigan Taliaigan anesthetic RN RN 8:57:39 Radial Cocktail added 1 Michelet Michelet used for (Verapomil to syringe Migdalia Negron procedure 2mg/Nitro field TORRES RN 400mcg/Heparin 1500units) 9:03:14 Versed I.V. 2 mg Michelet Michelet for sedation Migdalia Negron RN RN 9:03:23 Fentanyl I.V. 100 mcg Michelet Michelet for sedation Migdalia Negron RN RN 9:16:14 Radial Cocktail I.A. 1 Michelet for (Verapomil syringe Migdalia Olvera MD vasodilation 2mg/Nitro RN 400mcg/Heparin 1500units) Procedure Log Time Note 8:43:24 Signed procedure consent form obtained from patient. 8:43:25 Time tracking: Regular hours (M-F 7:00 - 5:00) 8:43:30 Plan of Care:Hemodynamics will remain stable., Cardiac rhythm will remain stable., Comfort level will be maintained., Respiratory function will remain adequate., Patient/ family verbilizes understanding of procedure., Procedure tolerated without complication., Recovers from procedure without complications.. 8:43:32 Colin Muniz RN sent for patient. Start room use. 8:43:42 H&P Date Dictated: 04/27/2018 Within 30 days and on chart., H&P Addendum completed by physician on day of procedure. (MUST COMPLETE FOR ALL OUTPATIENTS). 8:45:06 Patient allergic to Other allergyTRAMADOL 8:45:42 Lab Result : Creatinine 0.7 mg/dl 8:45:42 Lab Result : BUN 12 mg/dl 8:45:42 Lab Result : Hemoglobin 14.6 g/dl 8:47:50 Patient received from Pre/Post Procedure Room to CCL 1 Alert and oriented. Tansferred to table in Supine position. 8:47:51 Warm blankets applied, and ifrah hugger turned on for patient comfort. 8:47:52 Correct patient and procedure confirmed by team. 8:47:52 ECG and BP/O2 sat monitors applied to patient. 8:51:33 Vital chart was started 8:56:49 0.9% NaCl 100 ml/hr I.V. was administered by Michelet Negron RN; Per physician; 8:57:01 Oxygen 2 l/min etCO2 Nasal cannula was administered by Michelet Negron RN; Per physician; 8:57:17 Heparin Flush Bag (1000units/500ml NS) 2 bags added to field was administered by Michelet Negron RN; used for procedure; 8:57:29 Lidocaine 2% 20ml vial added to field was administered by Michelet Negron RN; for local anesthetic; 8:57:39 Radial Cocktail (Verapomil 2mg/Nitro 400mcg/Heparin 1500units) 1 syringe added to field was administered by Michelet Negron RN; used for procedure; 8:59:09 Baseline sample Acquired. 8:59:22 Rhythm: sinus rhythm 8:59:25 Full Disclosure recording started 8:59:30 Pre-procedure instructions explained to patient. 8:59:30 Pre-op teaching completed and patient verbalized understanding. 8:59:33 Family in waiting room. 8:59:35 Patient NPO since Midnight. 8:59:37 Is the patient allergic to Iodine/contrast media? No. 8:59:39 Is patient on blood thinner?No 8:59:39 Patient diabetic? No. 8:59:41 Previous problem with sedation/anesthesia? No ? 8:59:43 Snore? No 8:59:44 Sleep apnea? No 8:59:45 Deviated septum? No 8:59:46 Opens mouth fully? Yes 8:59:46 Sticks out tongue? Yes 8:59:48 Airway obstruction? No ? 8:59:50 Dentures? No ? 8:59:52 Modified Ke's test Ulnar < 7 seconds 8:59:54 Patient pain scale 0/10 ?. 8:59:59 IV patent on arrival in right forearm with 0.9% NaCl at [facility]. 9:00:01 Lab results completed and on chart. 9:00:04 Right Radial & Right Groin area was prepped with chlora-prep and draped in sterile fashion 9:00:05 Alarms reviewed by R. N. 9:00:05 Sharps counted by scrub and verified by R.N. 9:00:07 Use device set Radial Dx or PCI 9:00:08 ACIST Syringe (06345) opened to sterile field. 9:00:12 ACIST Hand Control (45820) opened to sterile field. 9:00:13 ACIST Manifold (03213) opened to sterile field. 9:00:13 Tegaderm 4 x 4 (1626W) opened to sterile field. 9:00:14 MBrace Wrist Support ([id number]) opened to sterile field. 9:00:18 Medline Cath Pack ([id number]) opened to sterile field. 9:00:20 Bag Decanter (2002S) opened to sterile field. 9:00:20 DIAGNOSTIC WIRE .035 260cm J wire (487407) opened to sterile field. 9:00:26 SHEATH 6Fr Prelude Radial ([id number]) opened to sterile field. 9:00:34 Physician arrived 9:02:05 --------ALL STOP TIME OUT------ 9:02:05 Final Timeout: patient, procedure, and site verified with staff and physician. All members of the team are in agreement. 9:02:06 Right Radial & Right Groin site verified by team. 9:02:10 Physical assessment completed. ASA score P 2 - A patient with mild systemic disease as per Jeffrey Olvera MD. 9:02:13 Sedation plan: IV Moderate Sedation Medication:Versed, Fentanyl 9:03:14 Versed 2 mg I.V. was administered by Michelet Negron RN; for sedation; 9:03:23 Fentanyl 100 mcg I.V. was administered by Michelet Negron RN; for sedation; 9:05:16 Zero performed for pressure channel P1 9:06:38 Procedure started. 9:06:43 Local anesthetic to right radial artery with Lidocaine 2% by Jeffrey Olvera MD.INITIAL ACCESS ONLY 9:08:34 A 6 Fr Short sheath was inserted into the Right Radial artery 9:15:46 A DIAGNOSTIC Crumrod 110cm 5 Fr catheter (551007) was advanced over the wire and used for Procedure. 9:16:08 LV gram done using SOUZA 9:16:14 Radial Cocktail (Verapomil 2mg/Nitro 400mcg/Heparin 1500units) 1 syringe I.A. was administered by Jeffrey Olvera MD; for vasodilation; 9:17:10 LCA angiography performed. 9:18:09 INFLATOR Merit BasixCompak (DD7621) opened to sterile field. 9:19:03 RCA angiography performed. 9:19:54 EF : 60 % 9:19:55 LV hemodynamics recorded. 9:19:58 Injector settings: Ml/sec: 5, Volume: 15, 9:19:59 Catheter removed. 9:21:17 GUIDE 6FR EBU 3.5 catheter ([id number]) opened to sterile field. 9:21:26 6 Fr 3.5 guide catheter was inserted over the wire 9:21:47 GRAPHIX 182cm guide wire ([id number]) opened to sterile field. 9:21:52 GRAPHIX wire advanced. 9:21:56 [place] IVUS Catheter (98944W) opened to sterile field. 9:22:02 IVUS catheter advanced over wire. 9:22:08 Wire advanced across lesion. 9:23:10 IVUS pass to LMCA lesion and LAD lesion performed. 9:23:12 IVUS catheter removed over wire. 9:24:42 Wire removed. 9:24:44 Guide catheter removed. 9:24:51 TR BAND Standard ([id number]) opened to sterile field. 9:25:00 Sheath removed intact; hemostasis achieved with Mechanical Compression to the Right Radial artery. 9:25:01 Procedure ended.(Physican Out) 9:25:41 Fluoroscopy time 03.30 minutes. 9:25:46 Flurop Dose total: 552 9:25:46 Fluoroscopy dose: 552 mGy 9:26:13 Contrast amount:Isovue 370 53ml. 9:26:15 Sharps counted by scrub and verified by R.N. 9:26:19 TR band inflated with 12cc of air. 9:26:20 Insertion/operative site no bleeding no hematoma. 9:26:23 Post Procedure Pulses reassessed and unchanged 9::26 Post-procedure physical assessment completed. ASA score P 2 - A patient with mild systemic disease as per Jeffrey Olvera MD. 9:26:27 Post procedure rhythm: unchanged. 9:26:31 Estimated blood loss: 10 ml 9::33 Post procedure instruction explained to patient.Patient verbalizes understanding. 9::33 Patient needs reinforcement of post procedure teaching. 9:26:42 Procedure type changed to Cath procedure, Diagnostic procedure, LHC, LHC w/Coronaries, FFR/IVUS, Intra-Coronary IVUS Initial, Sedation Charges, Moderate Sedation up to 15 minutes 9:28:07 Procedure and supply charges have been captured, reviewed, submitted and are correct. 9:28:09 Procedure Complication : No complications 9:28:12 Vital chart was stopped 9:28:14 See physician's report for complete and final results. 9:28:15 Report given to Pre/Post Procedure Room. 9:28:18 Patient transfered to Pre/Post Procedure Room with Stretcher. 9:28:21 Procedure ended. 9:28:21 Full Disclosure recording stopped 9:28:25 End room use (Document Last) Device Usage Item Name Manufacture Quantity Catalog Number Hospital Part Current M inimal Lot# / Charge Number Stock Stock Serial# Code ACIST Syringe Acist 1 10278 626600 107126 464566 2 0 (35087) Medical Systems Inc ACIST Hand Acist 1 14445 585610 428793 308921 5 Control (66331) Medical Systems Inc ACIST Manifold Acist 1 59911 844003 648817 214801 5 (38813) Medical Systems Inc Tegaderm 4 x 4 3M 1 1626W 217197 731269 413531 5 (1626W) MBrace Wrist Advanced 1 140-0250-00 243263 12966 450371 5 Support Vascular ([id number]) Dynamics Medline Cath Cardinal 1 [id number] 222476 66361 400052 5 Pack Health ([id number]) Bag Decanter Microtek 1 2001S 291096 72106 167546 5 () Medical Inc. DIAGNOSTIC WIRE [place] 1 791266 244739 538374 318601 3 0 .035 260cm J wire (824314) SHEATH 6Fr Merit 1 [id number] 071442 735797 259187 5 Prelude Radial Medical ([id number]) DIAGNOSTIC Terumo 1 40-2296 214831 225579 783392 5 Crumrod 110cm 5 Fr catheter (473295) INFLATOR Merit Merit 1 [id number] 492357 580549 202706 1 5 BasixCompak Medical (JY4309) GUIDE 6FR EBU Medtronic 1 [id number] 572521 19553 390996 3 3.5 catheter ([id number]) GRAPHIX 182cm [place] 1 [id number] 515781 925599 290411 5 guide wire Scientific ([id number]) [place] 1 [id number] 562776 124539 470766 8 [place] IVUS Catheter (30220Z) TR BAND Terumo 1 [id number] 228633 231654 031426 4 0 Standard ([id number]) Signature Audit [place] Stage Time Signature Unsigned Intra-Procedure 05/04/2018 Zain Cisse 9:30:46 AM RT(R) Signatures Monitor : Zain Cisse RT Signature : Date : Time : [place] [address] [place] [address]
[2018-05-04 07:35] VITALS: BP 157/92; BMI 23.8
[2018-05-04 08:00] LABS: BASOPHILS 0.4 % (0-2); EOSINOPHILS 2.3 % (0-7); HEMATOCRIT 42.5 % (42.0-54.0); HEMOGLOBIN 14.6 g/dL (13.5-17.5); IMMATURE GRANULOCYTES 0.3 % (0-5); LYMPHOCYTES 16.6 % (15-50); MCH 33.2 pg (26.0-34.0); MCHC 34.4 g/dL (31.0-37.0); MCV 96.6 fL (80.0-100.0); MEAN PLATELET VOLUME 10.1 fL (7.4-10.4); MONOCYTES 6.8 % (2-11); NEUTROPHILS 73.6 % (40-80); PLATELET COUNT 208 10x3/uL (130-400); RDW 12.8 % (11.5-14.5); WBC 10.3 10x3/uL (4.8-10.8)
[2018-05-04 08:07] LABS: CALC OSMOLALITY 274 mosm/kg (275-300); CALCIUM 8.1 mg/dL (8.5-10.1); CARBON DIOXIDE 24.9 mmol/L (21.0-32.0); CHLORIDE - SERUM 106 mmol/L (98-107); CREATININE - SERUM 0.7 mg/dL (0.6-1.3); GLUCOSE 109 mg/dL (74-106); POTASSIUM - SERUM 4.3 mmol/L (3.5-5.1); SODIUM 137 mmol/L (136-145); UREA NITROGEN 12 mg/dL (7-18); eGFR NON AFRICAN AMERICAN > 90 mL/min (90-120)
[2018-05-04 13:34] VITALS: Ht 185.4 cm; Wt 81.8 kg
[2018-05-05] MEDS ORDERED: BAYER CHEWABLE81 MG PO (12:23)
== END 2018-05-04 12:50 | disposition home or self-care (01) ==
LOC: D.CATH 07:29
PROVIDERS: Internal Medicine Interventional Cardiology
DX: I25.110 Atherosclerotic heart disease of native coronary artery with unstable angina pectoris (principal)

== ENCOUNTER 2018-05-05 11:05 | Outpatient (CLI) | payer MEDICAID ==
--- NOTE | ~2018-05-05 | HP ---
PATIENT: MIRNA JARRELL MEDICAL RECORD: [id number] ACCOUNT: [id number] LOCATION:[facility] : 59 ADMISSION DATE: 05/06/18 HISTORY AND PHYSICAL EXAMINATION Objective Data History of Present Illness: 62 year old male, history of multiple percutaneous coronary interventions, not on Plavix. The patient reports daily chest pain over the past 10 years, worsening recently. Catheter today with occluded ongoing right small amount of PDA filling, left main ostial LAD and circumflex. He wants to go home immediately to "smoke" and take care of some business. Risk factors hypertension, hyperlipidemia, tobacco abuse, family history. Neurological Hx: NUMBNESS, WEAKNESS, HANDS EENT Hx: GLASSES, DENTURES, UPPER AND LOWER FULL SET Endocrine Hx: NONE Cardiovascular Hx: HTN, ID, STENTS/ANGIOPLASTY, CORONARY ARTERY DISEASE, AAA Respiratory Hx: NONE Cancer Hx: NONE Immune Disorders: NONE Psychosocial Hx: DEPRESSION, ANXIETY Surgery Hx: STENTS KIDNEY STONE SURGERY THUMB AMPUTATION Allergies Coded Allergies: tramadol (UNKNOWN 07/27/17) Medications Reported Medications No Known Home Medications Family Hx Parent: CARDIOVASCULAR DISEASE, CANCER Sibling: NONE KNOWN Natural Child: NONE KNOWN Social History Tobacco Status: CURRENT EVERY DAY Alcohol: No Recreational Drug Use: No SUBJECTIVE Chief Complaint: chest pain Review of Systems GEN neg fatigue, neg weakness, neg anxiety, neg depression MEDICAL TECHNICIAN ASSISTANT neg headache, neg dizziness, neg numbness, neg mental status change CV neg palpitations, neg orthopnea, neg LE edema ID neg fever, neg chills, neg sweats, neg sore throat GI neg nausea, neg emesis, neg abdominal pain, neg diarrhea, neg constipation neg acute kidney disease, neg chronic kidney dx, neg dialysis, neg dysuria, neg goyal HEME neg epistaxis, neg hemoptysis, neg hematuria, neg GI bleeding, neg melena ENDO neg thirsty, neg sweaty, neg tremor Skin No Rash, No Bruising to skin Pulm neg SOB, neg cough, neg sputums, neg pleurisy HISTORY AND PHYSICAL [id number] MIRNA JARRELL Musc/skel neg pain, neg misalignment, neg stiffness, neg joint swelling, neg decreased ROM, neg functional deficit, neg arthritis BMI: 23.69143 Physical Exam Vital Signs Date Time Temp Pulse Resp B/P B/P Pulse O2 O2 Flow FiO2 Mean Ox Delivery Rate 05/04 0735 36.4 60 AL 16 157/92 ROOM AIR Labs/Imaging/Data Coronary angiogram General Appearance: alert, awake, conversant, mental status normal HEENT: anicteric, mucus membranes moist, pupils reactive to light, ex. occ. movements intact Neck: full range of motion, nontender, no bruit/NL carotids, no JVD, no lymphadenopathy, no masses or swelling, no thyromegaly, supple/no meningismus Cardiovascular Assessment: normal cap refill, regular rate and rhythm, normal heart sounds, no murmur gallop or rub Peripheral Pulses: Lt Radial present, Rt Dorsalis Pedis present, Lt Dorsalis Pedis present, dressing intact right radial artery catheter site Resp Assessment: no acute distress, normal breath sounds Abdomen/GI Assessment: soft, nontender, no distention, no guarding, no hepatosplenomegaly, no masses, normal bowel sounds Neur/MEDICAL TECHNICIAN ASSISTANT: alert, oriented times 4, speech clear, CN II - XII intact, no gross deficits, sensation grossly intact Extremity Assessment: normal inspection, capillary refill normal, full range of motion, neurovascular intact, no swelling, nontender, normal gait Skin: Warm, Dry, Intact, No Rash, No Lesions Problem List 1. Coronary artery disease Plan We discussed the rationale for surgery, the alternatives, the benefits, and the risks. He understands that the risks include but are not limited to bleeding, transfusion, arrhythmia, infection, reoperation, graft closure, heart attack, stroke, . He also understands that smoking cessation from this point forward is necessary but does not commit to that. Would prefer he stay for heparinization and operation but since he will go home, preadmission testing tomorrow surgery Wednesday. NATALEE FINCH MD at 1721 CC: [id number] DICTATION DATE: 05/04/18 1334 DIRECTOR AUTO: AISHA 05/05/18 1022 PRE IN [place] [id number] [place] [id number]
[2018-05-05] MEDS ORDERED: BAYER CHEWABLE81 MG PO (12:23)
[2018-05-05 14:04] LABS: BASOPHILS 0.6 % (0-2); EOSINOPHILS 3.8 % (0-7); IMMATURE GRANULOCYTES 0.2 % (0-5); LYMPHOCYTES 36.7 % (15-50); MCH 33.2 pg (26.0-34.0); MCV 97.4 fL (80.0-100.0); MEAN PLATELET VOLUME 10.4 fL (7.4-10.4); MONOCYTES 6.1 % (2-11); NEUTROPHILS 52.6 % (40-80); RDW 12.8 % (11.5-14.5)
[2018-05-05 14:09] LABS: APTT 30.1 SECONDS (22.8-39.4); INR 0.93 (0.85-1.17); PROTIME 12.1 SECONDS (11.6-15.0)
[2018-05-05 14:29] LABS: ALBUMIN 3.5 g/dL (3.4-5.0); ALKALINE PHOSPHATASE 59 U/L (46-116); ALT (SGPT) 21 U/L (10-68); BILIRUBIN - TOTAL 0.21 mg/dL (0.2-1.3); CALC OSMOLALITY 278 mosm/kg (275-300); CALCIUM 8.3 mg/dL (8.5-10.1); CARBON DIOXIDE 29.2 mmol/L (21.0-32.0); CHLORIDE - SERUM 104 mmol/L (98-107); CHOLESTEROL, TOTAL 201 mg/dL (0-200); CREATININE - SERUM 0.8 mg/dL (0.6-1.3); GLUCOSE 95 mg/dL (74-106); PHOSPHOROUS 4.4 mg/dL (2.5-4.9); POTASSIUM - SERUM 4.6 mmol/L (3.5-5.1); PROTEIN - SERUM 6.6 g/dL (6.4-8.2); SODIUM 139 mmol/L (136-145); THYROID STIMULATING HORMONE 4.64 uIU/mL (0.36-3.74); UREA NITROGEN 15 mg/dL (7-18); URIC ACID 4.5 mg/dL (2.6-7.2); eGFR NON AFRICAN AMERICAN > 90 mL/min (90-120)
[2018-05-05 14:45] LABS: HEMATOCRIT 57.3 % (42.0-54.0); HEMOGLOBIN 19.5 g/dL (13.5-17.5); PLATELET COUNT 81 10x3/uL (130-400); RBC 5.88 10x6/uL (4.20-6.10); WBC 4.7 10x3/uL (4.8-10.8)
[2018-05-05 15:15] LABS: PLATELET ESTIMATE NORMAL
[2018-05-06 12:19] LABS: HEPATITIS C ANTIBODY >11.0 (0.0-0.9)
[2018-05-10 15:42] VITALS: BMI 21.4
== END 2018-05-05 11:06 | disposition home or self-care (01) ==
LOC: D.OPS 11:05 → EDSTATUS 05-06 11:30 → D.SDCHOLD 05-06 11:30
PROVIDERS: Thoracic Surgery (Cardiothoracic Vascular Surgery)
DX: I25.110 Atherosclerotic heart disease of native coronary artery with unstable angina pectoris (principal); Z01.810 Encounter for preprocedural cardiovascular examination; Z01.811 Encounter for preprocedural respiratory examination; Z01.812 Encounter for preprocedural laboratory examination

== ENCOUNTER 2018-05-10 09:14 | Inpatient (IN) | payer MEDICAID ==
[~2018-05-10] VITALS: Ht 185.4 cm; Wt 76.8 kg
[2018-05-10] VITALS (11 sets, daily range): BP systolic 100–192; BP diastolic 66–108; BMI 21.4
--- NOTE | ~2018-05-10 | OP ---
PATIENT NAME: MIRNA JARRELL MEDICAL RECORD: [id number] :59 LOCATION:[id number] ADMISSION DATE:05/10/18 SURGEON: FLYNN FINCH MD DATE OF OPERATION: 05/11/2018 SURGEON: Flynn Finch MD WASTE WATER TREATMENT PLANT OPERATOR: MARIE Kramer OPERATION PERFORMED: Coronary artery bypass graft times 3 (left internal mammary artery to LAD, reverse saphenous vein graft from aorta to obtuse marginal and from the side of that vein graft to the ramus intermedius post-distally). PREOPERATIVE DIAGNOSES: Coronary artery disease with unstable angina. POSTOPERATIVE DIAGNOSES: Coronary artery disease with unstable angina. ANESTHESIA: General endotracheal anesthesia. ESTIMATED BLOOD LOSS: Total cardiopulmonary bypass with Cell Saver retransfusion. COMPLICATIONS: None. SPECIMENS: None. CONDITION: Stable. DISPOSITION: CV ICU. OPERATIVE FINDINGS: 1. SAHRA was normal. 2. Good quality greater saphenous vein from the mid calf to the ankle, but the portion at the knee and the lower right thigh was smaller caliber and this was used for the ramus intermedius graft and then the proximal to the side of the obtuse marginal graft. 3. Internal mammary was a good conduit. The LAD was a 2.0-mm vessel with moderate disease, palpable plaque in the proximal end of this target vessel and all target vessels as well as the palpable stents. 4. Ramus intermedius 1.5 mm intramyocardial vessel. 5. Obtuse marginal 2.0 mm. 6. Small acute marginal that crossed to the inferior wall of the right ventricle to function as the PDA as well as the ongoing right giving off a posterolateral branch were both small and not grafted. 7. Severely hyperexpanded lungs bilaterally. 8. Ascending aortic plaque in the proximal left side of the ascending aorta, an opening was made for proximal anastomosis here, but closed with pledgeted suture without making a 3.5 mm punch. OPERATIVE INDICATION: Coronary artery disease with unstable angina. DESCRIPTION OF PROCEDURE: The patient was brought to the operating suite. General anesthesia was obtained, the patient was prepped and draped. Greater saphenous vein harvested in the right leg using bridging incision. Side OPERATIVE REPORT [id number] MIRNA JARRELL branches were divided. Proximal and distal end of the vein was clipped and it was removed. Side branches were clipped and tied. Leg was irrigated and closed in multiple layers. Median sternotomy incision was made. Subcutaneous tissues divided by electrocautery. The sternum was divided with a saw. Left hemisternum was elevated. The left pleural cavity was entered. Left internal mammary artery and vein was taken as a pedicle graft. Sternal retractor was placed. Pericardium was opened. Heparin was given. The aorta was cannulated. A triple stage venous cannula was inserted. The internal mammary was clipped distally and made ready for anastomosis. The patient was placed on cardiopulmonary bypass after activated clotting time was appropriately elevated. Sites for distal anastomosis were selected. Antegrade cardioplegia needle was inserted. The patient had a temperature that was allowed to drift and then a crossclamp was placed. Cardioplegia was given antegrade and this was repeated at 15-20 minute intervals including down the completed vein grafts. Distal anastomosis was performed in standard technique, proximal anastomosis in single cross-clamp technique. Aortic root de-aired. Then, a pvqy-qh-palv proximal anastomosis. Proximal and distal anastomotic sites were inspected for bleeding. The patient was fully rewarmed, weaned from cardiopulmonary bypass and was stable. The patient was decannulated. Protamine was given. The aortic cannulation site was oversewn with a pledgeted Prolene suture. As noted above, pledget was also placed at the site of closure in the low left aorta. Hemostasis was assured. Thorough irrigation was undertaken. Grafts laid appropriately. A drain was placed in the mediastinum and both pleural cavities and ventricular pacing wires were placed. Pericardial fat was loosely reapproximated. Left chest was evacuated and irrigated. The internal mammary harvest site was made hemostatic. Sternum was closed with wires. The patient was stable and the chest closed. Fascia was closed. Subcutaneous tissue was closed. Skin was closed. Dermabond was placed. The needle and sponge counts were reported as correct. The patient was taken to the ICU in stable condition. TRANSINT:[id number] Voice Confirmation ID: [id number] DOCUMENT ID: [id number] FLYNN FINCH MD at 1127 CC: BLAKE RONDON MD [id number] DICTATION DATE: 05/11/18 1247 INTEL ANALYST: 05/11/18 1350 [place] [address]
--- NOTE | ~2018-05-10 | TEE ---
PATIENT:MIRNA JARRELL MEDICAL RECORD: [id number] LOCATION:[place] [address] AGE OF PATIENT: 62 ADMISSION DATE: 05/10/18 SEX: M REFERRING PHYSICIAN: INTERPRETING PHYSICIAN: BLAKE RONDON MD TRANSESOPHAGEAL ECHOCARDIOGRAM Date: 05/11/18 SAHRA CHARGE Y INDICATIONS: CABG PREMEDICATIONS: PATIENT'S RESPONSE PROCEDURE DOPPLER MEASUREMENTS: LVIT LA PA RA LVOT RVOT Asc. Ao AV Gradient Peak AV Mean AV Area MV Gradient Peak MV Mean MV Area INTERPRETATION: LVD: 4.8 LVS: 3.3 Doppler: 2-D: COLOR FLOW DOPPLER NORMAL SALINE STUDY: MISCELLANOUS: DIAGNOSIS: PLAN: Doll Repairer:4 Dr. Rondon Coat Repair Inspector: Freeman GALLEGOS COMMENTS: DATE OF SERVICE: PROCEDURE: Intraoperative transesophageal echocardiogram. PROCEDURE IN DETAIL: The patient had an echocardiogram probe placed during an intraoperative Coronary bypass grafting procedure. FINDINGS: 1. What is demonstrated is the aortic valve, which appears to be trileaflet, TRANSESOPHAGEAL ECHOCARDIOGRAM REPORT [id number] CHRISTIAN JARRELL normal structure. The interatrial septum was visualized and appears to be intact. 2. The left ventricle appears to be normal to hyperdynamic. 3. The mitral valve is grossly normal including the chordal structure appears to be normal. 4. The right side of the heart shows a catheter artifact. The tricuspid valve appears to be grossly normal. The right atrium has a catheter or pacer artifact post-CABG. The left ventricular function appears to be well preserved. There was no demonstration of significant pericardial effusion. TRANSINT:[id number] Voice Confirmation ID: [id number] DOCUMENT ID: [id number] at 0841 CC: [id number] DICTATION DATE: 05/11/18 1700 SKEIN SPOOLER: 05/12/18 1032 DIS IN 05/15/[address] [facility] [address] [place] [address]
[~2018-05-10 09:14] MED LIST changes: +BAYER CHEWABLE81 MG PO
[2018-05-10 09:44] LABS: BASOPHILS 0.2 % (0-2); EOSINOPHILS 0.5 % (0-7); HEMATOCRIT 45.1 % (42.0-54.0); HEMOGLOBIN 15.7 g/dL (13.5-17.5); IMMATURE GRANULOCYTES 0.2 % (0-5); LYMPHOCYTES 20.2 % (15-50); MCH 33.4 pg (26.0-34.0); MCHC 34.8 g/dL (31.0-37.0); MEAN PLATELET VOLUME 10.6 fL (7.4-10.4); MONOCYTES 5.4 % (2-11); NEUTROPHILS 73.5 % (40-80); PLATELET COUNT 235 10x3/uL (130-400); RDW 12.7 % (11.5-14.5); WBC 9.7 10x3/uL (4.8-10.8)
[2018-05-10 09:52] LABS: APTT 28.4 SECONDS (22.8-39.4); INR 0.96 (0.85-1.17); PROTIME 12.4 SECONDS (11.6-15.0)
[2018-05-10 09:56] LABS: ALBUMIN 3.6 g/dL (3.4-5.0); ALKALINE PHOSPHATASE 82 U/L (46-116); ALT (SGPT) 32 U/L (10-68); BILIRUBIN - TOTAL 0.53 mg/dL (0.2-1.3); CALC OSMOLALITY 277 mosm/kg (275-300); CALCIUM 8.9 mg/dL (8.5-10.1); CARBON DIOXIDE 25.3 mmol/L (21.0-32.0); CHLORIDE - SERUM 105 mmol/L (98-107); CREATININE - SERUM 0.7 mg/dL (0.6-1.3); GLUCOSE 117 mg/dL (74-106); PROTEIN - SERUM 7.7 g/dL (6.4-8.2); SODIUM 139 mmol/L (136-145); UREA NITROGEN 9 mg/dL (7-18); eGFR NON AFRICAN AMERICAN > 90 mL/min (90-120)
[2018-05-10 09:58] LABS: POTASSIUM - SERUM 4.4 mmol/L (3.5-5.1)
[2018-05-10 10:09] LABS: CKMB 1.4 U/L (0.0-3.6); CREATINE KINASE 158 UL (21-232); PRO BNP 109 pg/mL (0-125); TROPONIN-I < 0.017 ng/mL (0.000-0.060)
[2018-05-10 11:06] LABS: CREATINE KINASE 96 UL (21-232)
[2018-05-10 11:12] LABS: TROPONIN-I < 0.017 ng/mL (0.000-0.060)
[2018-05-10 17:06] LABS: CREATINE KINASE 84 UL (21-232)
[2018-05-10 17:07] LABS: TROPONIN-I < 0.017 ng/mL (0.000-0.060)
[2018-05-10 17:26] LABS: BASOPHILS 0.3 % (0-2); EOSINOPHILS 1.4 % (0-7); HEMATOCRIT 41.2 % (42.0-54.0); HEMOGLOBIN 14.1 g/dL (13.5-17.5); IMMATURE GRANULOCYTES 0.1 % (0-5); LYMPHOCYTES 31.8 % (15-50); MCH 33.2 pg (26.0-34.0); MCHC 34.2 g/dL (31.0-37.0); MCV 96.9 fL (80.0-100.0); MONOCYTES 7.8 % (2-11); NEUTROPHILS 58.6 % (40-80); PLATELET COUNT 198 10x3/uL (130-400); RBC 4.25 10x6/uL (4.20-6.10); RDW 12.8 % (11.5-14.5); WBC 8.8 10x3/uL (4.8-10.8)
[2018-05-10 18:41] LABS: APTT 27.9 SECONDS (22.8-39.4); INR 1.05 (0.85-1.17); PROTIME 13.3 SECONDS (11.6-15.0)
[2018-05-10 18:48] LABS: ALBUMIN 3.1 g/dL (3.4-5.0); ALKALINE PHOSPHATASE 69 U/L (46-116); ALT (SGPT) 26 U/L (10-68); BILIRUBIN - TOTAL 0.27 mg/dL (0.2-1.3); CALCIUM 8.3 mg/dL (8.5-10.1); CARBON DIOXIDE 29.4 mmol/L (21.0-32.0); CHLORIDE - SERUM 104 mmol/L (98-107); CHOLESTEROL, TOTAL 214 mg/dL (0-200); GLUCOSE 103 mg/dL (74-106); PHOSPHOROUS 2.9 mg/dL (2.5-4.9); PROTEIN - SERUM 6.4 g/dL (6.4-8.2); SODIUM 141 mmol/L (136-145); T4 THYROXIN - FREE 0.88 ng/dL (0.76-1.46); THYROID STIMULATING HORMONE 3.79 uIU/mL (0.36-3.74); URIC ACID 5.4 mg/dL (2.6-7.2)
[2018-05-10 18:52] LABS: CALC OSMOLALITY 280 mosm/kg (275-300); CREATININE - SERUM 0.9 mg/dL (0.6-1.3); POTASSIUM - SERUM 3.7 mmol/L (3.5-5.1); UREA NITROGEN 12 mg/dL (7-18); eGFR NON AFRICAN AMERICAN > 90 mL/min (90-120)
[2018-05-10 21:11] LABS: APPEARANCE CLEAR (CLEAR); COLOR AMBER (YELLOW)
[2018-05-10 21:12] LABS: BILIRUBIN NEGATIVE (NEGATIVE); GLUCOSE NEGATIVE (NEGATIVE); KETONE NEGATIVE (NEGATIVE); NITRITE NEGATIVE (NEGATIVE); PROTEIN NEGATIVE (NEGATIVE); RED CELLS - URINE 0-5 /hpf (0-5); UROBILINOGEN NORMAL (NORMAL); WHITE CELLS - URINE 0-5 /hpf (0-5)
[2018-05-10 21:13] LABS: BACTERIA FEW /hpf (NONE SEEN); CALCIUM OXALATE CRYSTALS 0-5 /hpf (NONE SEEN); EPITHELIAL CELLS 0-5 /hpf (0-5); MUCUS <1+ /lpf (NONE SEEN)
[2018-05-10 23:49] LABS: CKMB 1.1 U/L (0.0-3.6); CREATINE KINASE 78 UL (21-232); TROPONIN-I < 0.017 ng/mL (0.000-0.060)
[2018-05-11] VITALS (43 sets, daily range): BP systolic 93–188; BP diastolic 58–101
[2018-05-11 06:20] LABS: BASOPHILS 0.4 % (0-2); EOSINOPHILS 2.2 % (0-7); HEMOGLOBIN 14.4 g/dL (13.5-17.5); IMMATURE GRANULOCYTES 0.2 % (0-5); MCH 32.7 pg (26.0-34.0); MCHC 33.5 g/dL (31.0-37.0); MCV 97.5 fL (80.0-100.0); MEAN PLATELET VOLUME 10.1 fL (7.4-10.4); MONOCYTES 7.7 % (2-11); NEUTROPHILS 62.5 % (40-80); PLATELET COUNT 187 10x3/uL (130-400); RBC 4.41 10x6/uL (4.20-6.10); RDW 12.9 % (11.5-14.5); WBC 9.8 10x3/uL (4.8-10.8)
[2018-05-11 06:47] LABS: ALBUMIN 3.1 g/dL (3.4-5.0); ALKALINE PHOSPHATASE 62 U/L (46-116); ALT (SGPT) 23 U/L (10-68); BILIRUBIN - TOTAL 0.29 mg/dL (0.2-1.3); CALC OSMOLALITY 280 mosm/kg (275-300); CALCIUM 8.2 mg/dL (8.5-10.1); CARBON DIOXIDE 28.6 mmol/L (21.0-32.0); CHLORIDE - SERUM 105 mmol/L (98-107); CREATININE - SERUM 0.9 mg/dL (0.6-1.3); GLUCOSE 102 mg/dL (74-106); PROTEIN - SERUM 6.5 g/dL (6.4-8.2); SODIUM 141 mmol/L (136-145); UREA NITROGEN 13 mg/dL (7-18); eGFR NON AFRICAN AMERICAN > 90 mL/min (90-120)
[2018-05-11 06:58] LABS: POTASSIUM - SERUM 4.4 mmol/L (3.5-5.1)
[2018-05-12] VITALS (50 sets, daily range): BP systolic 96–145; BP diastolic 50–83; Ht 185.4 cm; Wt 76.8 kg
[2018-05-12 06:05] LABS: MCHC 32.9 g/dL (31.0-37.0); MCV 97.5 fL (80.0-100.0); MEAN PLATELET VOLUME 10.4 fL (7.4-10.4); RBC 3.59 10x6/uL (4.20-6.10); RDW 12.9 % (11.5-14.5)
[2018-05-12 06:06] LABS: HEMOGLOBIN 11.5 g/dL (13.5-17.5); WBC 13.6 10x3/uL (4.8-10.8)
[2018-05-12 06:39] LABS: ALBUMIN 2.9 g/dL (3.4-5.0); ALKALINE PHOSPHATASE 40 U/L (46-116); ALT (SGPT) 18 U/L (10-68); BILIRUBIN - TOTAL 0.55 mg/dL (0.2-1.3); CALC OSMOLALITY 276 mosm/kg (275-300); CALCIUM 7.6 mg/dL (8.5-10.1); CARBON DIOXIDE 27.7 mmol/L (21.0-32.0); CHLORIDE - SERUM 103 mmol/L (98-107); CREATININE - SERUM 0.7 mg/dL (0.6-1.3); GLUCOSE 135 mg/dL (74-106); POTASSIUM - SERUM 4.1 mmol/L (3.5-5.1); PROTEIN - SERUM 5.5 g/dL (6.4-8.2); SODIUM 138 mmol/L (136-145); UREA NITROGEN 11 mg/dL (7-18); eGFR NON AFRICAN AMERICAN > 90 mL/min (90-120)
[2018-05-13] VITALS (24 sets, daily range): BP systolic 90–117; BP diastolic 56–84
[2018-05-13 05:47] LABS: HEMATOCRIT 33.6 % (42.0-54.0); HEMOGLOBIN 11.3 g/dL (13.5-17.5); MCH 32.7 pg (26.0-34.0); MCHC 33.6 g/dL (31.0-37.0); MCV 97.1 fL (80.0-100.0); MEAN PLATELET VOLUME 10.4 fL (7.4-10.4); RBC 3.46 10x6/uL (4.20-6.10); RDW 13.1 % (11.5-14.5)
[2018-05-13 06:31] LABS: ALBUMIN 2.7 g/dL (3.4-5.0); ALKALINE PHOSPHATASE 42 U/L (46-116); ALT (SGPT) 19 U/L (10-68); BILIRUBIN - TOTAL 0.47 mg/dL (0.2-1.3); CALC OSMOLALITY 276 mosm/kg (275-300); CARBON DIOXIDE 27.9 mmol/L (21.0-32.0); CHLORIDE - SERUM 103 mmol/L (98-107); CREATININE - SERUM 0.8 mg/dL (0.6-1.3); GLUCOSE 126 mg/dL (74-106); POTASSIUM - SERUM 4.2 mmol/L (3.5-5.1); PROTEIN - SERUM 5.7 g/dL (6.4-8.2); SODIUM 138 mmol/L (136-145); UREA NITROGEN 9 mg/dL (7-18); eGFR NON AFRICAN AMERICAN > 90 mL/min (90-120)
[2018-05-14] VITALS (24 sets, daily range): BP systolic 84–127; BP diastolic 55–82
[2018-05-14 06:13] LABS: HEMATOCRIT 30.9 % (42.0-54.0); HEMOGLOBIN 10.1 g/dL (13.5-17.5); MCH 31.9 pg (26.0-34.0); MCHC 32.7 g/dL (31.0-37.0); MCV 97.5 fL (80.0-100.0); MEAN PLATELET VOLUME 10.2 fL (7.4-10.4); RBC 3.17 10x6/uL (4.20-6.10); RDW 13.1 % (11.5-14.5); WBC 9.8 10x3/uL (4.8-10.8)
[2018-05-14 07:06] LABS: ALBUMIN 2.4 g/dL (3.4-5.0); ALKALINE PHOSPHATASE 46 U/L (46-116); BILIRUBIN - TOTAL 0.34 mg/dL (0.2-1.3); CALCIUM 7.9 mg/dL (8.5-10.1); CARBON DIOXIDE 29.4 mmol/L (21.0-32.0); CHLORIDE - SERUM 103 mmol/L (98-107); CREATININE - SERUM 0.8 mg/dL (0.6-1.3); GLUCOSE 110 mg/dL (74-106); POTASSIUM - SERUM 3.9 mmol/L (3.5-5.1); PROTEIN - SERUM 5.7 g/dL (6.4-8.2); SODIUM 138 mmol/L (136-145); eGFR NON AFRICAN AMERICAN > 90 mL/min (90-120)
[2018-05-14 07:08] LABS: ALT (SGPT) 27 U/L (10-68); CALC OSMOLALITY 277 mosm/kg (275-300); UREA NITROGEN 14 mg/dL (7-18)
[2018-05-15] VITALS (8 sets, daily range): BP systolic 92–116; BP diastolic 59–74
[2018-05-15 06:38] LABS: HEMATOCRIT 30.2 % (42.0-54.0); HEMOGLOBIN 9.9 g/dL (13.5-17.5); MCHC 32.8 g/dL (31.0-37.0); MCV 97.7 fL (80.0-100.0); MEAN PLATELET VOLUME 10.4 fL (7.4-10.4); RBC 3.09 10x6/uL (4.20-6.10); RDW 13.2 % (11.5-14.5); WBC 9.4 10x3/uL (4.8-10.8)
[2018-05-15 07:39] LABS: ALBUMIN 2.4 g/dL (3.4-5.0); ALKALINE PHOSPHATASE 40 U/L (46-116); ALT (SGPT) 23 U/L (10-68); BILIRUBIN - TOTAL 0.32 mg/dL (0.2-1.3); CALC OSMOLALITY 276 mosm/kg (275-300); CALCIUM 7.8 mg/dL (8.5-10.1); CARBON DIOXIDE 28.3 mmol/L (21.0-32.0); CHLORIDE - SERUM 103 mmol/L (98-107); CREATININE - SERUM 0.7 mg/dL (0.6-1.3); GLUCOSE 112 mg/dL (74-106); POTASSIUM - SERUM 3.9 mmol/L (3.5-5.1); PROTEIN - SERUM 5.7 g/dL (6.4-8.2); SODIUM 138 mmol/L (136-145); UREA NITROGEN 13 mg/dL (7-18); eGFR NON AFRICAN AMERICAN > 90 mL/min (90-120)
[2018-05-15] MEDS ORDERED: HYDROCODONE-APA1 TAB PO (18:39)
== END 2018-05-15 08:30 | disposition left against medical advice (07) | DRG 236 ==
LOC: D.ER 09:14 → OBSVTIME 10:33 → D.M2 10:33 → D.EDHOLD 10:33 → D.M2 13:11 → D.CVICU 17:10 → D.M2 17:10 → D.CVICU 05-11 09:39
PROVIDERS: Family Medicine; Thoracic Surgery (Cardiothoracic Vascular Surgery)
PROC: 021109W Bypass Coronary Artery, Two Arteries from Aorta with Autologous Venous Tissue, Open Approach (ICD-10-PCS; 2018-05-11)
PROC: 06BP0ZZ Excision of Right Saphenous Vein, Open Approach (ICD-10-PCS; 2018-05-11)
PROC: 5A1221Z Performance of Cardiac Output, Continuous (ICD-10-PCS; 2018-05-11)
PROC: B24BZZ4 Ultrasonography of Heart with Aorta, Transesophageal (ICD-10-PCS; 2018-05-11)
PROC: 02100Z9 Bypass Coronary Artery, One Artery from Left Internal Mammary, Open Approach (ICD-10-PCS; principal; 2018-05-11 07:30)
DX: I25.110 Atherosclerotic heart disease of native coronary artery with unstable angina pectoris (principal); J93.9 Pneumothorax, unspecified; E78.5 Hyperlipidemia, unspecified; I10 Essential (primary) hypertension; F17.200 Nicotine dependence, unspecified, uncomplicated; Z91.14 Patient's other noncompliance with medication regimen; B19.20 Unspecified viral hepatitis C without hepatic coma; I71.4 Abdominal aortic aneurysm, without rupture

== ENCOUNTER 2018-05-15 15:02 | Emergency (ER) | payer MEDICAID ==
[~2018-05-15] VITALS: Ht 185.4 cm; Wt 81.8 kg
[2018-05-15 15:28] VITALS: Ht 185.4 cm; Wt 81.8 kg
[2018-05-15] MEDS ORDERED: HYDROCODONE-APA1 TAB PO (18:39)
[2018-05-15 18:53] VITALS: BP 131/86
== END 2018-05-15 18:54 | disposition home or self-care (01) ==
LOC: D.ER 15:02
DX: G89.18 Other acute postprocedural pain (principal); I10 Essential (primary) hypertension

== ENCOUNTER 2018-05-18 01:04 | Emergency (ER) | payer MEDICAID ==
[~2018-05-18] VITALS: Ht 185.4 cm; Wt 80.9 kg
[~2018-05-18 01:04] MED LIST changes: +HYDROCODONE-APA1 TAB PO
[2018-05-18 01:07] VITALS: Ht 185.4 cm; Wt 80.9 kg
[2018-05-18 01:34] LABS: BASOPHILS 0.6 % (0-2); EOSINOPHILS 4.1 % (0-7); HEMATOCRIT 31.2 % (42.0-54.0); HEMOGLOBIN 10.4 g/dL (13.5-17.5); IMMATURE GRANULOCYTES 0.5 % (0-5); LYMPHOCYTES 23.5 % (15-50); MCH 32.4 pg (26.0-34.0); MCHC 33.3 g/dL (31.0-37.0); MCV 97.2 fL (80.0-100.0); MEAN PLATELET VOLUME 9.7 fL (7.4-10.4); NEUTROPHILS 62.3 % (40-80); PLATELET COUNT 293 10x3/uL (130-400); RBC 3.21 10x6/uL (4.20-6.10); RDW 12.8 % (11.5-14.5); WBC 10.7 10x3/uL (4.8-10.8)
[2018-05-18 01:44] LABS: APTT 31.3 SECONDS (22.8-39.4); INR 0.97 (0.85-1.17); PROTIME 12.5 SECONDS (11.6-15.0)
[2018-05-18] MEDS ORDERED: NORCO 7.5/325 T1 TA1 PO (01:46)
[2018-05-18 01:48] LABS: ALBUMIN 2.6 g/dL (3.4-5.0); ALKALINE PHOSPHATASE 47 U/L (46-116); ALT (SGPT) 29 U/L (10-68); BILIRUBIN - TOTAL 0.26 mg/dL (0.2-1.3); CALC OSMOLALITY 278 mosm/kg (275-300); CALCIUM 8.4 mg/dL (8.5-10.1); CHLORIDE - SERUM 104 mmol/L (98-107); CREATININE - SERUM 0.8 mg/dL (0.6-1.3); GLUCOSE 106 mg/dL (74-106); POTASSIUM - SERUM 4.5 mmol/L (3.5-5.1); PROTEIN - SERUM 6.3 g/dL (6.4-8.2); SODIUM 140 mmol/L (136-145); UREA NITROGEN 12 mg/dL (7-18); eGFR NON AFRICAN AMERICAN > 90 mL/min (90-120)
[2018-05-18 01:59] LABS: CKMB 0.9 U/L (0.0-3.6); CREATINE KINASE 159 UL (21-232); PRO BNP 698 pg/mL (0-125); TROPONIN-I 0.032 ng/mL (0.000-0.060)
[2018-05-18 02:59] VITALS: BP 115/71
== END 2018-05-18 03:01 | disposition home or self-care (01) ==
LOC: D.ER 01:04
PROVIDERS: Emergency Medicine
DX: G89.18 Other acute postprocedural pain (principal); I10 Essential (primary) hypertension; I25.810 Atherosclerosis of coronary artery bypass graft(s) without angina pectoris; Z85.038 Personal history of other malignant neoplasm of large intestine

== ENCOUNTER 2018-05-22 18:53 | Emergency (ER) | payer MEDICAID ==
[~2018-05-22] VITALS: Ht 185.4 cm; Wt 79.4 kg
[~2018-05-22 18:53] MED LIST changes: +NORCO 7.5/325 T1 TA1 PO
[2018-05-22 19:07] VITALS: Ht 185.4 cm; Wt 79.4 kg
[2018-05-22 19:27] LABS: BASOPHILS 0.5 % (0-2); EOSINOPHILS 5.2 % (0-7); HEMATOCRIT 33.3 % (42.0-54.0); IMMATURE GRANULOCYTES 0.2 % (0-5); LYMPHOCYTES 20.3 % (15-50); MCH 32.2 pg (26.0-34.0); MCV 97.4 fL (80.0-100.0); MEAN PLATELET VOLUME 9.1 fL (7.4-10.4); MONOCYTES 5.3 % (2-11); NEUTROPHILS 68.5 % (40-80); RBC 3.42 10x6/uL (4.20-6.10); RDW 13.1 % (11.5-14.5); WBC 9.6 10x3/uL (4.8-10.8)
[2018-05-22 19:30] LABS: PLATELET COUNT 433 10x3/uL (130-400)
[2018-05-22 19:40] LABS: ALBUMIN 2.9 g/dL (3.4-5.0); ANION GAP 11.6 mmol/L (8-16); BILIRUBIN - TOTAL 0.29 mg/dL (0.2-1.3); CALCIUM 8.3 mg/dL (8.5-10.1); CARBON DIOXIDE 27.8 mmol/L (21.0-32.0); CREATININE - SERUM 1.3 mg/dL (0.6-1.3); POTASSIUM - SERUM 4.4 mmol/L (3.5-5.1)
[2018-05-22] MEDS ORDERED: HYDROCODONE-APA1 TAB PO (20:21)
[2018-05-22] MEDS ORDERED: CLEOCIN HCL300 MG PO (20:21)
[2018-05-22 20:36] VITALS: BP 109/67
== END 2018-05-22 20:36 | disposition home or self-care (01) ==
LOC: D.ER 18:53
PROVIDERS: Family Medicine
DX: G89.18 Other acute postprocedural pain (principal); J93.9 Pneumothorax, unspecified; I10 Essential (primary) hypertension; I25.810 Atherosclerosis of coronary artery bypass graft(s) without angina pectoris; Z85.038 Personal history of other malignant neoplasm of large intestine

== ENCOUNTER 2018-05-27 10:21 | Emergency (ER) | payer MEDICAID ==
[~2018-05-27] VITALS: Ht 185.4 cm; Wt 77.3 kg
[~2018-05-27 10:21] MED LIST changes: +CLEOCIN HCL300 MG PO
[2018-05-27 10:28] VITALS: Ht 185.4 cm; Wt 77.3 kg
[2018-05-27] MEDS ORDERED: TYLENOL W/CODEI1 TAB PO (11:12)
[2018-05-27 12:10] VITALS: BP 136/97
== END 2018-05-27 12:12 | disposition home or self-care (01) ==
LOC: D.ER 10:21
DX: R07.9 Chest pain, unspecified (principal)

== ENCOUNTER 2019-10-24 17:54 | Emergency (ER) | payer MEDICAID ==
[~2019-10-24] VITALS: Ht 185.4 cm; Wt 81.6 kg
[~2019-10-24 17:54] MED LIST changes: +TYLENOL W/CODEI1 TAB PO
[2019-10-24 18:08] VITALS: Ht 185.4 cm; Wt 81.6 kg
[2019-10-24] MEDS ORDERED: VOLTAREN75 MG PO (19:37)
[2019-10-24] MEDS ORDERED: METHOCARBAMOL750 MG NG (19:37)
[2019-10-24] MEDS ORDERED: TALWIN NX1 TAB PO (19:37)
[2019-10-24 19:59] VITALS: BP 173/107
== END 2019-10-24 19:53 | disposition home or self-care (01) ==
LOC: D.ER 17:54
DX: M54.9 Dorsalgia, unspecified (principal); G89.29 Other chronic pain; W19.XXXA Unspecified fall, initial encounter; Y93.9 Activity, unspecified; Y92.9 Unspecified place or not applicable

== ENCOUNTER 2019-12-18 23:57 | Emergency (ER) | payer MEDICAID ==
[~2019-12-18] VITALS: Ht 185.4 cm; Wt 81.8 kg
[~2019-12-18 23:57] MED LIST changes: +METHOCARBAMOL750 MG NG; +TALWIN NX1 TAB PO; +VOLTAREN75 MG PO
[2019-12-19 00:04] VITALS: Ht 185.4 cm; Wt 81.8 kg
[2019-12-19 00:59] LABS: CALC OSMOLALITY 282 mosm/kg (275-300); CALCIUM 8.4 mg/dL (8.5-10.1); CARBON DIOXIDE 28.4 mmol/L (21.0-32.0); CHLORIDE - SERUM 106 mmol/L (98-107); GLUCOSE 113 mg/dL (74-106); SODIUM 141 mmol/L (136-145); UREA NITROGEN 16 mg/dL (7-18); eGFR NON AFRICAN AMERICAN 80 mL/min (90-120)
[2019-12-19 01:00] LABS: APTT 30.1 SECONDS (22.8-39.4); PROTIME 13.2 SECONDS (11.6-15.0)
[2019-12-19 01:02] LABS: BASOPHILS 0.5 % (0-2); D-DIMER-QUANTITATIVE 0.68 ug/mLFEU (0.20-0.54); EOSINOPHILS 3.2 % (0-7); HEMATOCRIT 42.7 % (42.0-54.0); HEMOGLOBIN 14.1 g/dL (13.5-17.5); IMMATURE GRANULOCYTES 0.2 % (0-5); LYMPHOCYTES 30.3 % (15-50); MCH 32.6 pg (26.0-34.0); MCV 98.8 fL (80.0-100.0); MEAN PLATELET VOLUME 9.8 fL (7.4-10.4); MONOCYTES 6.4 % (2-11); NEUTROPHILS 59.4 % (40-80); RBC 4.32 10x6/uL (4.20-6.10); RDW 12.7 % (11.5-14.5); WBC 9.3 10x3/uL (4.8-10.8)
[2019-12-19 01:03] LABS: PLATELET COUNT 248 10x3/uL (130-400)
[2019-12-19 01:12] LABS: ALBUMIN 3.3 g/dL (3.4-5.0); ALKALINE PHOSPHATASE 58 U/L (30-120); ALT (SGPT) 19 U/L (10-68); BILIRUBIN - TOTAL 0.15 mg/dL (0.2-1.3); LIPASE 79 U/L (73-393); PRO BNP 321 pg/mL (0-125); PROTEIN - SERUM 6.6 g/dL (6.4-8.2); TROPONIN-I < 0.017 ng/mL (0.000-0.060)
[2019-12-19] MEDS ORDERED: COMBIVENT RESPIM4 GM INH (03:00)
[2019-12-19] MEDS ORDERED: PROAIR HFA8.5 G1 INH (03:00)
[2019-12-19] MEDS ORDERED: AZITHROMYCIN500 MG PO (03:01)
[2019-12-19 03:33] VITALS: BP 121/77
== END 2019-12-19 03:33 | disposition home or self-care (01) ==
LOC: D.ER 23:57
PROVIDERS: Family Medicine
DX: J44.9 Chronic obstructive pulmonary disease, unspecified (principal); Z72.0 Tobacco use; Z95.1 Presence of aortocoronary bypass graft

== ENCOUNTER → 2020-03-12 12:08 | Outpatient (CLI) | payer MEDICAID ==
[2019-12-19 00:04] VITALS: BMI 23.8
[~2020-03-12 12:08] MED LIST changes: +AZITHROMYCIN500 MG PO; +COMBIVENT RESPIM4 GM INH; +PROAIR HFA8.5 G1 INH
== END | disposition home or self-care (01) ==
LOC: D.LABREF 12:08
PROVIDERS: ATTEND Internal Medicine Pulmonary Disease
DX: Z11.59 Encounter for screening for other viral diseases (principal)

== ENCOUNTER 2020-03-14 06:10 | Day surgery (SDC) | payer MEDICAID ==
[2020-03-12 10:37] LABS: HEMATOCRIT 45.8 % (42.0-54.0); HEMOGLOBIN 15.3 g/dL (13.5-17.5); MCH 32.6 pg (26.0-34.0); MCHC 33.4 g/dL (31.0-37.0); MCV 97.4 fL (80.0-100.0); MEAN PLATELET VOLUME 9.7 fL (7.4-10.4); RBC 4.7 10x6/uL (4.20-6.10); RDW 12.6 % (11.5-14.5); WBC 9.3 10x3/uL (4.8-10.8)
[~2020-03-14] VITALS: Ht 182.9 cm; Wt 81.8 kg
--- NOTE | ~2020-03-14 | OP ---
PATIENT NAME: MIRNA JARRELL MEDICAL RECORD: [id number] :59 LOCATION:D.OPS ADMISSION DATE: SURGEON: MARY LUCERO MD DATE OF OPERATION: 03/14/2020 PREOPERATIVE DIAGNOSIS: Bilateral posterior cervical foraminal stenosis. POSTOPERATIVE DIAGNOSIS: Bilateral posterior cervical foraminal stenosis. SURGEON: Mary Lucero MD SENIOR DIRECTOR INSIGHT: Herberth Davis CRNA, HYDRAULIC CORRUGATING MACHINE OPERATOR PROCEDURE: Bilateral posterior cervical foraminotomies at C5-C6. DESCRIPTION AND TECHNIQUE: After induction of general endotracheal anesthesia, the patient was placed in Rubi head pin and rolled prone on chest and hip rolls. The posterior neck was prepped and draped in usual sterile fashion. Fluoroscopic x-ray and spinal needle localized the C5-C6 interspace on both sides. A midline skin incision was carried out with #11 blade after infiltration of 1:100,000 epinephrine with 1% lidocaine. Next, using a Bovie cautery and the spinous processes and lamina of C5 and C6 were exposed were exposed in a subperiosteal manner on both sides. Following this, level was confirmed with fluoroscopic x-ray. A Yuri self-retaining retractor was used to maintain exposure. A microscope and Midas Jason drill were used to perform a laminotomy, medial facetectomy and foraminotomy at C5-C6 on both sides. Hypertrophied ligamentum flavum was removed with Cloward rongeurs. Following this, both C6 nerve roots were decompressed well after performing a laminotomy and medial facetectomy on both sides. Meticulous hemostasis was maintained throughout both wounds. Retraction was held by Herberth Davis during the entirety of the procedure as well as suction and irrigation. The fascia was closed with 2-0 Vicryl suture. Subdermal layer was closed with 3-0 Vicryl suture. The skin was closed with hanny. A sterile dressing was applied to the wound. The patient was awakened in good condition, taken to recovery. All counts were reported as correct. Estimated blood loss was minimal. TRANSINT:[id number] Voice Confirmation ID: [id number] DOCUMENT ID: [id number] MARY LUCERO MD CC: [id number] DICTATION DATE: 04/01/20 0916 BATH M[facility] OPERATOR: 04/01/20 1207 [facility] 03/15/20 [place] [address]
[2020-03-14 06:15] VITALS: BP 143/87; BMI 24.4
[2020-03-14 11:55] VITALS: BP 130/74
--- NOTE | 2020-03-14 12:35 | NUR ---
LYING IN BED,WITHOUT NEEDS.CALL LIGHT IN REACH
[2020-03-14 16:37] VITALS: BP 143/79
--- NOTE | 2020-03-14 16:40 | NUR ---
WAS MEDICATED WITH MORPHINE PER ORDER FOR C/O NECK PAIN. C/L IN REACH AT BEDSIDE.
[2020-03-14 20:00] VITALS: BP 124/76
--- NOTE | 2020-03-14 20:00 | NUR ---
PATIENT RESTING IN BED WATCHING TV. NO S/S OF ACUTE DISTRESS. NO C/O AT THIS TIME. PATIENT HAS IV TO THE RIGHT FOREARM, D5 1/2 NORMAL SALINE @ 50 ML/HR. IV IS PATENT WITHOUT REDNESS, SWELLING, OR TENDERNESS. PATIENT HAS DRESSING TO UPPER BACK IN THE CERVICAL SPINE AREA. DRESSING IS C/D/I. PATIENT IS UP WITH SOFT NECKBRACE. CALL LIGHT WITHIN REACH. WILL CONTINUE TO MONITOR.
--- NOTE | 2020-03-14 22:59 | NUR ---
I have reviewed this patient and I concur with the Shift Assessment completed by the Licensed Practical Nurse today this shift.
--- NOTE | 2020-03-14 23:15 | NUR ---
PATIENT DRESSING HAD LEAKED OUT OF THE CORNERS OF THE DRESSING AND DRESSING WAS REINFORCED WITH GAUZE AND TAPE. CALL LIGHT WITHIN REACH. WILL CONTINUE TO MONITOR.
[2020-03-15] VITALS: BP 130/70
[2020-03-15 03:55] VITALS: Ht 182.9 cm; Wt 81.8 kg
[2020-03-15 04:00] VITALS: BP 154/86
--- NOTE | 2020-03-15 07:05 | NUR ---
ALERT AND ORIENTED. C/O PAIN, GAVE NORCO FOR PAIN OF 10/10. NO S/S OF ACUTE DISTRESS NOTED. DRESSING TO POSTERIOR NECK, C/D/I. SOFT COLLAR WORN WHEN UP. REFUSED SCDS. IV TO RIGHT FOREARM, D5 1/2 NS INFUSING @ 50ML/HR. SITE PATENT WITHOUT REDNESS OR SWELLING. DENIES ANY NEEDS AT THIS TIME. CALL LIGHT IN REACH. WILL CONTINUE TO MONITOR.
--- NOTE | 2020-03-15 08:04 | NUR ---
UP AND AMBULATING. SOFT COLLAR IN PLACE.
[2020-03-15 08:33] VITALS: BP 149/92
[2020-03-15] MEDS ORDERED: HYDROCODON-ACE1 EA10 PO (09:14)
[2020-03-15] MEDS ORDERED: ROBAXIN PO (09:42)
--- NOTE | 2020-03-15 10:09 | NUR ---
DISCHARGED PATIENT HOME WITH FAMILY VIA WHEELCHAIR. DISCONTINUED IV, CATHETER TIP INTACT. WENT OVER DISCHARGE INSTRUCTIONS, VERBALIZED UNDERSTANDING. DENIES ANYTHING FURTHER AT THIS TIME.
== END 2020-03-15 10:23 | disposition home or self-care (01) ==
LOC: D.OPS 06:10 → EDSTATUS 07:30 → D.SDCHOLD 07:30 → D.MS 11:02 → D.OPS 03-15 10:23
PROVIDERS: Anesthesiology; ATTEND Neurological Surgery
DX: M48.02 Spinal stenosis, cervical region (principal); M54.12 Radiculopathy, cervical region; I10 Essential (primary) hypertension; Z72.0 Tobacco use

== ENCOUNTER 2020-06-04 05:52 | Emergency (ER) | payer MEDICAID ==
[~2020-06-04] VITALS: Ht 182.9 cm; Wt 84.1 kg
[~2020-06-04 05:52] MED LIST changes: +HYDROCODON-ACE1 EA10 PO; +ROBAXIN PO
[2020-06-04 06:09] VITALS: Ht 182.9 cm; Wt 84.1 kg
[2020-06-04 06:52] LABS: BASOPHILS 0.4 % (0-2); EOSINOPHILS 2.3 % (0-7); HEMATOCRIT 42.2 % (42.0-54.0); HEMOGLOBIN 14.4 g/dL (13.5-17.5); IMMATURE GRANULOCYTES 0.1 % (0-5); LYMPHOCYTES 21.3 % (15-50); MCH 32.3 pg (26.0-34.0); MCHC 34.1 g/dL (31.0-37.0); MCV 94.6 fL (80.0-100.0); MEAN PLATELET VOLUME 9.7 fL (7.4-10.4); MONOCYTES 6.1 % (2-11); NEUTROPHILS 69.8 % (40-80); PLATELET COUNT 201 10x3/uL (130-400); RBC 4.46 10x6/uL (4.20-6.10); RDW 12.5 % (11.5-14.5); WBC 6.8 10x3/uL (4.8-10.8)
[2020-06-04 07:18] LABS: CALC OSMOLALITY 274 mosm/kg (275-300); CALCIUM 8.7 mg/dL (8.5-10.1); CARBON DIOXIDE 24.9 mmol/L (21.0-32.0); CHLORIDE - SERUM 104 mmol/L (98-107); CREATININE - SERUM 0.8 mg/dL (0.6-1.3); GLUCOSE 108 mg/dL (74-106); POTASSIUM - SERUM 3.9 mmol/L (3.5-5.1); SODIUM 137 mmol/L (136-145); UREA NITROGEN 12 mg/dL (7-18); eGFR NON AFRICAN AMERICAN > 90 mL/min (90-120)
[2020-06-04 07:23] LABS: ALBUMIN 3.5 g/dL (3.4-5.0); ALKALINE PHOSPHATASE 55 U/L (30-120); ALT (SGPT) 16 U/L (10-68); C-REACTIVE PROTEIN 0.7 mg/dL (0.0-0.9); PRO BNP 431 pg/mL (0-125); PROTEIN - SERUM 6.9 g/dL (6.4-8.2)
[2020-06-04 07:24] LABS: TROPONIN-I < 0.017 ng/mL (0.000-0.060)
[2020-06-04] MEDS ORDERED: PREDNISONE20 MG PO (10:09)
[2020-06-04 10:25] VITALS: BP 148/87
== END 2020-06-04 10:26 | disposition home or self-care (01) ==
LOC: D.ER 05:52
PROVIDERS: Family Medicine
DX: J44.9 Chronic obstructive pulmonary disease, unspecified (principal); R06.02 Shortness of breath

== ENCOUNTER 2020-12-04 20:14 | Emergency (ER) | payer MEDICAID ==
[~2020-12-04] VITALS: Ht 182.9 cm; Wt 81.8 kg
[~2020-12-04 20:14] MED LIST changes: +ALBUTEROL SULF8.5 GM INH; +ISOSORBIDE MONO30 M1 PO; +MEDROL DOSE PACK4 MG PO; +METHOCARBAMOL500 MG PO; +PREDNISONE20 MG PO
[2020-12-04 20:29] VITALS: Ht 182.9 cm; Wt 81.8 kg
[2020-12-04 20:53] LABS: BASOPHILS 0.6 % (0-2); EOSINOPHILS 3.6 % (0-7); HEMATOCRIT 41.3 % (42.0-54.0); HEMOGLOBIN 13.7 g/dL (13.5-17.5); IMMATURE GRANULOCYTES 0.3 % (0-5); LYMPHOCYTES 30.4 % (15-50); MCH 32.2 pg (26.0-34.0); MCHC 33.2 g/dL (31.0-37.0); MCV 97.2 fL (80.0-100.0); MEAN PLATELET VOLUME 9.8 fL (7.4-10.4); MONOCYTES 5.7 % (2-11); NEUTROPHILS 59.4 % (40-80); PLATELET COUNT 211 10x3/uL (130-400); RBC 4.25 10x6/uL (4.20-6.10); RDW 12.9 % (11.5-14.5); WBC 6.9 10x3/uL (4.8-10.8)
[2020-12-04 21:06] LABS: CALC OSMOLALITY 282 mosm/kg (275-300); CALCIUM 8.5 mg/dL (8.5-10.1); CARBON DIOXIDE 27.1 mmol/L (21.0-32.0); CHLORIDE - SERUM 106 mmol/L (98-107); GLUCOSE 118 mg/dL (74-106); POTASSIUM - SERUM 4.3 mmol/L (3.5-5.1); SODIUM 139 mmol/L (136-145); UREA NITROGEN 23 mg/dL (7-18); eGFR NON AFRICAN AMERICAN 80 mL/min (90-120)
[2020-12-04 21:16] LABS: ALBUMIN 3.4 g/dL (3.4-5.0); ALKALINE PHOSPHATASE 53 U/L (30-120); ALT (SGPT) 20 U/L (10-68); BILIRUBIN - TOTAL 0.13 mg/dL (0.2-1.3); PRO BNP 229 pg/mL (0-125); PROTEIN - SERUM 6.7 g/dL (6.4-8.2); TROPONIN-I < 0.017 ng/mL (0.000-0.060)
[2020-12-04 22:24] VITALS: BP 131/89
== END 2020-12-04 22:24 | disposition home or self-care (01) ==
LOC: D.ER 20:14
PROVIDERS: Family Medicine
DX: J44.1 Chronic obstructive pulmonary disease with (acute) exacerbation (principal); I25.10 Atherosclerotic heart disease of native coronary artery without angina pectoris; G89.29 Other chronic pain

== ENCOUNTER 2021-02-11 00:57 | Emergency (ER) | payer MEDICAID ==
[~2021-02-11] VITALS: Ht 182.9 cm; Wt 81.8 kg
[2021-02-11 01:03] VITALS: Ht 182.9 cm; Wt 81.8 kg
[2021-02-11 01:32] LABS: BASOPHILS 0.6 % (0-2); EOSINOPHILS 3.7 % (0-7); HEMATOCRIT 43.6 % (42.0-54.0); HEMOGLOBIN 14.4 g/dL (13.5-17.5); IMMATURE GRANULOCYTES 0.1 % (0-5); LYMPHOCYTE ABS# 1.84 10x3/uL (1.32-3.57); LYMPHOCYTES 22.8 % (15-50); MCH 32.4 pg (26.0-34.0); MEAN PLATELET VOLUME 10.4 fL (7.4-10.4); MONOCYTES 6.1 % (2-11); NEUTROPHIL ABS# 5.39 10x3/uL (1.78-5.38); NEUTROPHILS 66.7 % (40-80); PLATELET COUNT 228 10x3/uL (130-400); RBC 4.45 10x6/uL (4.20-6.10); RDW 12.8 % (11.5-14.5); WBC 8.1 10x3/uL (4.8-10.8)
[2021-02-11] MEDS ORDERED: PROAIR HFA8.5 G1 INH (01:36)
[2021-02-11] MEDS ORDERED: PREDNISONE20 MG PO (01:36)
[2021-02-11 01:41] LABS: CALC OSMOLALITY 280 mosm/kg (275-300); CALCIUM 8.5 mg/dL (8.5-10.1); CARBON DIOXIDE 25.4 mmol/L (21.0-32.0); CHLORIDE - SERUM 106 mmol/L (98-107); CREATININE - SERUM 0.9 mg/dL (0.6-1.3); GLUCOSE 111 mg/dL (74-106); POTASSIUM - SERUM 4.8 mmol/L (3.5-5.1); SODIUM 140 mmol/L (136-145); UREA NITROGEN 16 mg/dL (7-18); eGFR NON AFRICAN AMERICAN > 90 mL/min (90-120)
[2021-02-11 01:57] LABS: ALBUMIN 3.3 g/dL (3.4-5.0); ALKALINE PHOSPHATASE 57 U/L (30-120); ALT (SGPT) 21 U/L (10-68); BILIRUBIN - TOTAL 0.14 mg/dL (0.2-1.3); CKMB 2.1 U/L (0.0-3.6); CREATINE KINASE 161 UL (21-232); PRO BNP 451 pg/mL (0-125); PROTEIN - SERUM 6.6 g/dL (6.4-8.2); TROPONIN-I < 0.017 ng/mL (0.000-0.060)
[2021-02-11] MEDS ORDERED: ZPAK PO (02:11)
[2021-02-11 02:36] VITALS: BP 161/80
== END 2021-02-11 02:37 | disposition home or self-care (01) ==
LOC: D.ER 00:57
PROVIDERS: Student in an Organized Health Care Education/Training Program
DX: J44.1 Chronic obstructive pulmonary disease with (acute) exacerbation (principal); J44.0 Chronic obstructive pulmonary disease with (acute) lower respiratory infection; R06.02 Shortness of breath; Z95.1 Presence of aortocoronary bypass graft; Z72.0 Tobacco use